=== PATIENT | male | born 1950 | race Caucasian/White ===

== ENCOUNTER → 2016-07-26 | Outpatient (CLI) | payer OTHER ==
[~2016-07-26] MED LIST: ASPCH81X PO; ATV5 PO; CALC600T9 PO; CALCTAB5 PO; CEFD300C2 PO; CHOL100010 PO; CHOL2000 PO; CITA20TA4 PO; FISHOIL PO; IBUP-1050 PO; LANS30CA12 PO; LORA-741 PO; MULTTAB58 PO; NEBI10TA2 PO; OMEG10007 PO; SILO8CAP PO; TRAM-10 PO; [UNRECOGNIZED DRUG - OTHER] PO
[2016-07-26 12:59] LABS: BASO % 0.3 %; BASO ABS # 0.02 K/uL (0-0.2); COMPLETE YES; EOS % 0.9 %; HEMATOCRIT 42.4 % (42-52); LYMPH % 17.4 %; LYMPH ABS # 1.37 K/uL (1.2-3.4); MEAN CELL VOLUME 80.6 fL (80-100); MEAN CORPUSCULAR HEMOGLOBIN 29.5 pg (25-34); MEAN CORPUSCULAR HGB CONC 36.6 g/dl (32-36); MEAN PLATELET VOLUME 9.6 fL (7.4-10.4); MONO % 6.1 %; NEUT % 75.3 %; PLATELET COUNT 255 K/uL (130-400); RED BLOOD COUNT 5.26 M/uL (4.7-6.1); WHITE BLOOD COUNT 7.88 K/uL (4.8-10.8)
[2016-07-26 13:38] LABS: ALT/SGPT 26 U/L (12-78); AST/SGOT 19 U/L (15-37); BLOOD UREA NITROGEN 17 mg/dl (7-18); BUN/CREATININE RATIO 16.6 (10-20); CALCIUM 8.8 mg/dl (8.5-10.1); CARBON DIOXIDE 30 mmol/L (21-32); CHLORIDE 104 mmol/L (98-107); GLUCOSE 80 mg/dl (70-99); POTASSIUM 3.8 mmol/L (3.5-5.1); SODIUM 142 mmol/L (136-145)
[2016-07-26 13:49] LABS: ALB/GLOB RATIO 1.4 (0.9-2); ALKALINE PHOSPHATASE 79 U/L (45-117); C-REACTIVE PROTEIN 0.46 mg/dl (0-0.29)
--- NOTE | 2016-07-27 08:20 | DIAGNOSTIC IMAGING REPORT ---
LUMBAR SPINE 5 VIEWS HISTORY: Low BACK PAIN COMPARISON: Lumbar spine 12/06/2015. FINDINGS: There is again noted L1 burst fracture with moderate to severe anterior wedging. The central aspect of the L1 vertebral body measures 1 cm in height. This is overall similar to the prior study. There are slight increased sclerosis involving the anterior aspect of the vertebral body consistent with interval healing. There is approximately 3 mm of retropulsion of the posterior fragment of L1 which is stable to slightly progressed. Severe degenerative disease at L4-L5 and mild disc space narrowing at L2-L3 and L5-S1 persists. Moderate facet degenerative changes seen within the lower lumbar spine. Alignment remains unchanged through both flexion and extension. The left L1 and L2 transverse process fractures are not well visualized. IMPRESSION: 1. Redemonstration of the L1 burst fracture with moderate to severe anterior wedging. There is slight increased sclerosis within the anterior aspect of the L1 vertebral body consistent with interval healing. 2. Approximately 3 mm of retropulsion of the posterior L1 fragment which is stable to slightly progressed. 3. The alignment remains intact through both flexion and extension. Electronically signed by: Roby Villa M.D. 07/27/2016 8:18 AM Dictated Date/Time: 07/27/2016 8:12 AM
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
== END | disposition home or self-care (01) ==
LOC: C.RAD 12:21
PROVIDERS: ATTEND Anesthesiology
DX: S32.011A Stable burst fracture of first lumbar vertebra, initial encounter for closed fracture (principal); X58.XXXA Exposure to other specified factors, initial encounter; M79.1 Myalgia; Z79.899 Other long term (current) drug therapy

== ENCOUNTER → 2016-08-17 | Day surgery (SDC) | payer OTHER ==
[2016-08-05 08:29] VITALS: BMI 25.0
[~2016-08-17] VITALS: Ht 180.3 cm; Wt 81.8 kg
[~2016-08-17] MED LIST changes: -ATV5 PO; -CALCTAB5 PO; +LIDOCAINE HCL 2% 2 ML VIAL (20MG/ML) ONE; +MIDAZOLAM HCL 1 MG/ML 2ML VIAL ONE; +ONDANSETRON INJ 2 MG/ML 2 ML VIAL ONE; +PROPOFOL IV EMULSION 10 MG/ML 20 ML VIAL IV ONE; +SODIUM CHLORIDE 0.9% 500ML 500 ML IV ONE; -[UNRECOGNIZED DRUG - OTHER] PO
[2016-08-17 08:46] VITALS: Ht 180.3 cm; Wt 81.8 kg
--- NOTE | 2016-08-17 08:58 | Endo History and Physical ---
History & Physical Date of Service: Aug 17, 2016. Chief Complaint: rectal bleeding Referring Physician: Dr. Kylee Villatoro History of Present Illness 65 yo CM who presents for colonoscopy secondary to rectal bleeding. Past Medical History High Cholesterol, Heart Disease, Hypertension Past Surgical History Hx Cardiac Surgery: No Hx Internal Defibrillator: No Hx Pacemaker: No Hx Abdominal Surgery: No Hx of Implantable Prosthesis: No Hx Post-Op Nausea and Vomiting: No Hx Cancer Surgery: No Hx Thoracic Surgery: No Hx Orthopedic: Yes (LT TKA, MULTIPLE LT KNEE SURGERIES, RT SHOULDER) Hx Urinary Tract Surgery: No Family History Polyp Social History Smoking Status: Never Smoker Hx Substance Use: No Hx Alcohol Use: Yes (SOCIALLY) Allergies Coded Allergies: Penicillins (Verified Allergy, Mild, petechiae, 08/17/16) Clindamycin (Verified Allergy, Unknown, ? rash, 08/17/16) was on 3 abx post-op. not certain which caused reaction Piperacillin (Verified Allergy, Unknown, ? rash, 08/17/16) was on 3 abx post-op, uncertain which caused reaction Tazobactam (Verified Allergy, Unknown, ? rash, 08/17/16) on 3 abx post-op uncertain which caused reaction Vancomycin (Verified Allergy, Unknown, ? rash, 08/17/16) on 3 abx post-op uncertain which caused reaction Current Medications Reported Home Medications Medications Dose Route/Sig Max Daily Dose Days Date Category Ativan (Lorazepam) 0.5 Mg Tab 0.5 Mg PO TID PRN 08/05/16 Reported Calcium + D (Calcium Carbonate-Vitamin D) 1 Tab Tab 2 Tab PO HS 08/05/16 Reported Advil (Ibuprofen) 200 Mg Tab 200 Mg PO 2 X WEEKLY PRN 07/23/16 Reported Ultram (Tramadol HCl) 50 Mg Tab 0.5 Tab PO DAILY PRN 07/23/16 Reported Rapaflo (Silodosin) 8 Mg Cap 1 Cap PO QAM 12/02/15 Reported Vitamin D (Cholecalciferol) 1,000 Inter.unit Tab 2,000 Inter.unit PO DAILY 12/01/15 Reported Prevacid (Lansoprazole) 30 Mg Capcr 30 Mg PO QAM 12/01/15 Reported Bystolic (Nebivolol Hcl) 10 Mg Tab 10 Mg PO QAM 12/01/15 Reported Aspirin Chewable (Aspirin) 81 Mg Chew 162 Mg PO QAM 03/26/12 Reported [place]-3 (Fish Oil) Oil 1 Cap PO HS 03/26/12 Reported Multivitamin (Multiple Vitamin) 1 Tab Tab 1 Tab PO HS 03/26/12 Reported Vital Signs Weight (Kilograms): 81.82 Height (Feet): 5 Height (Inches): 11 Physical Exam General Appearance: WD/WN, no apparent distress Respiratory/Chest: Auscultation: breath sounds normal Cardiovascular: Heart Auscultation: RRR Abdomen: Bowel Sounds: normal Inspection & Palpation: soft, non-distended, no tenderness, guarding & rebound Assessment and Plan Assessment: 65 yo CM who presents for colonoscopy secondary to rectal bleeding. Plan: Proceed with colonoscopy.
[2016-08-17 08:59] VITALS: TEMP 36.7
--- NOTE | 2016-08-17 09:29 | GI REPORT ---
Procedure Date: 08/17/2016 9:10 AM Procedure: Colonoscopy Indications: Rectal bleeding Medicines: Monitored Anesthesia Care Complications: No immediate complications. Estimated Blood Loss: Estimated blood loss: none. Procedure: Pre-Anesthesia Assessment: - Prior to the procedure, a History and Physical was performed, and patient medications and allergies were reviewed. The patient's tolerance of previous anesthesia was also reviewed. The risks and benefits of the procedure and the sedation options and risks were discussed with the patient. All questions were answered, and informed consent was obtained. Prior Anticoagulants: The patient has taken aspirin, last dose was 7 days prior to procedure. ASA Grade Assessment: III - A patient with severe systemic disease. After reviewing the risks and benefits, the patient was deemed in satisfactory condition to undergo the procedure. After I obtained informed consent, the scope was passed under direct vision. Throughout the procedure, the patient's blood pressure, pulse, and oxygen saturations were monitored continuously. The scope was introduced through the anus and advanced to the terminal ileum. The colonoscopy was performed without difficulty. The patient tolerated the procedure well. The quality of the bowel preparation was good. The terminal ileum, ileocecal valve, appendiceal orifice, and rectum were photographed. Findings: Multiple small-mouthed diverticula were found in the sigmoid colon. The exam was otherwise without abnormality. Impression: - Diverticulosis in the sigmoid colon. - The examination was otherwise normal. - No specimens collected. Recommendation: - Resume previous diet. - Continue present medications. - Repeat colonoscopy in 10 years for surveillance. - Return to primary care physician as previously scheduled. Drake Lacy DO 08/17/2016 9:28:38 AM This report has been signed electronically. Note Initiated On: 08/17/2016 9:10 AM I attest to the content of the Intraoperative Record and orders documented therein, exceptions below
--- NOTE | 2016-08-17 09:30 | Discharge Instructions ---
Endoscopy Patient Instructions Date / Procedure(s) Performed Aug 17, 2016. Colonoscopy Allergy Information Coded Allergies: Penicillins (Verified Allergy, Mild, petechiae, 08/17/16) Clindamycin (Verified Allergy, Unknown, ? rash, 08/17/16) was on 3 abx post-op. not certain which caused reaction Piperacillin (Verified Allergy, Unknown, ? rash, 08/17/16) was on 3 abx post-op, uncertain which caused reaction Tazobactam (Verified Allergy, Unknown, ? rash, 08/17/16) on 3 abx post-op uncertain which caused reaction Vancomycin (Verified Allergy, Unknown, ? rash, 08/17/16) on 3 abx post-op uncertain which caused reaction Discharge Date / Findings Aug 17, 2016. Diverticulosis Medication Instructions Stopped Medication(s): off ASA 81mg for a week. OK to resume all medications today as prescribed Reported Home Medications Medications Dose Route/Sig Max Daily Dose Days Date Category Ativan (Lorazepam) 0.5 Mg Tab 0.5 Mg PO TID PRN 08/05/16 Reported Calcium + D (Calcium Carbonate-Vitamin D) 1 Tab Tab 2 Tab PO HS 08/05/16 Reported Advil (Ibuprofen) 200 Mg Tab 200 Mg PO 2 X WEEKLY PRN 07/23/16 Reported Ultram (Tramadol HCl) 50 Mg Tab 0.5 Tab PO DAILY PRN 07/23/16 Reported Rapaflo (Silodosin) 8 Mg Cap 1 Cap PO QAM 12/02/15 Reported Vitamin D (Cholecalciferol) 1,000 Inter.unit Tab 2,000 Inter.unit PO DAILY 12/01/15 Reported Prevacid (Lansoprazole) 30 Mg Capcr 30 Mg PO QAM 12/01/15 Reported Bystolic (Nebivolol Hcl) 10 Mg Tab 10 Mg PO QAM 12/01/15 Reported Aspirin Chewable (Aspirin) 81 Mg Chew 162 Mg PO QAM 03/26/12 Reported [place]-3 (Fish Oil) Oil 1 Cap PO HS 03/26/12 Reported Multivitamin (Multiple Vitamin) 1 Tab Tab 1 Tab PO HS 03/26/12 Reported Provider Instructions Activity Restrictions - No exercising or heavy lifting for 24 hours. - Do not drink alcohol the day of the procedure. - Do not drive a car or operate machinery until the day after the procedure. - Do not make any important decisions or sign important papers in 24 hours after the procedure. Following Day: - Return to full activity which may include returning to work/school. Diet Start your diet with liquids and light foods (jello, soup, juice, toast). Then eat your usual diet if not nauseated. Treatment For Common After Affects For mild abdominal pain, bloating, or excessive gas: - Rest - Eat lightly - Lie on right side Follow-Up Information Follow-up with Dr. Kylee Villatoro as scheduled Anesthesia Information What You Should Know You have had a procedure that required some medicine to reduce anxiety and discomfort. This treatment is called moderate sedation. After receiving the treatment, you may be sleepy, but you will be able to breathe on your own. The effects of the treatment may last for several hours. Follow these instructions along with Activity/Diet recommendations noted above: * Do NOT do anything where dizziness or clumsiness would be dangerous. * Rest quietly at home today, then you can be up and about tomorrow. * Have a responsible person stay with you the rest of today. * You may have had an I.V. today. If so, you may take the dressing off later today. Recommendations Call your doctor if: * Trouble breathing * Continuous vomiting for more than 24 hours * Temperature above 101 degrees * Severe abdominal pain or bloating * Pain not relieved by pain medicine ordered * There is increased drainage or redness from any incision * A large amount of rectal bleeding greater than 2-3 tablespoons. (If you had a polyp/s removed or have hemorrhoids, a small amount of blood - from the rectum is to be expected.) * You have any unanswered questions or concerns. IN THE EVENT OF A SERIOUS EMERGENCY, GO TO THE NEAREST EMERGENCY ROOM Your discharge instructions were prepared by provider Drake Lacy. Patient Instructions Signature Page Moo Reed Patient (or Guardian) Signature/Date: I have read and understand the instructions given to me by my caregivers. Caregiver/RN/Doctor Signature/Date: The above-named patient and/or guardian has received patient instructions on this date. + Original Patient Signature Page (only) stays with chart. Please make copy for patient.
--- NOTE | 2016-08-17 09:44 | Anesthesiology Progress Note ---
Anesthesia Post Op Note Date & Time Aug 17, 2016 at 09:43 Vital Signs Pain Intensity: 0 Vital Signs Past 12 Hours Date Time Temp Pulse Resp B/P Pulse Ox O2 Delivery O2 Flow Rate FiO2 08/17/16 09:31 56 18 113/74 98 Room Air 08/17/16 08:59 36.7 57 18 129/76 96 Room Air Notes Mental Status: alert / awake / arousable, participated in evaluation Pt Amnestic to Procedure: Yes Nausea / Vomiting: adequately controlled Pain: adequately controlled Airway Patency, RR, SpO2: stable & adequate BP & HR: stable & adequate Hydration State: stable & adequate Anesthetic Complications: no major complications apparent
[2016-08-17 10:01] VITALS: BP 96/73; PULSE 50; O2SAT 96
== END | disposition home or self-care (01) ==
LOC: C.GI 08:23
PROVIDERS: ATTEND Internal Medicine
DX: K62.5 Hemorrhage of anus and rectum (principal); K57.30 Diverticulosis of large intestine without perforation or abscess without bleeding; I10 Essential (primary) hypertension; N40.0 Benign prostatic hyperplasia without lower urinary tract symptoms; Z96.652 Presence of left artificial knee joint; M19.90 Unspecified osteoarthritis, unspecified site; Z98.890 Other specified postprocedural states; Z68.25 Body mass index [BMI] 25.0-25.9, adult; Z88.1 Allergy status to other antibiotic agents; Z88.0 Allergy status to penicillin; Z83.71 Family history of colonic polyps

== ENCOUNTER → 2016-10-11 | Outpatient (CLI) | payer OTHER ==
[~2016-10-11] MED LIST changes: -LIDOCAINE HCL 2% 2 ML VIAL (20MG/ML) ONE; -MIDAZOLAM HCL 1 MG/ML 2ML VIAL ONE; -ONDANSETRON INJ 2 MG/ML 2 ML VIAL ONE; -PROPOFOL IV EMULSION 10 MG/ML 20 ML VIAL IV ONE; -SODIUM CHLORIDE 0.9% 500ML 500 ML IV ONE
== END | disposition home or self-care (01) ==
LOC: C.PATHSPEC 17:36
PROVIDERS: ATTEND Surgery
DX: D17.9 Benign lipomatous neoplasm, unspecified (principal)

== ENCOUNTER 2017-02-05 03:08 | Inpatient (IN) | payer OTHER ==
[2017-02-05] VITALS (8 sets, daily range): BP systolic 103–137; BP diastolic 68–79; PULSE 57–67; TEMP 37–39.3; O2SAT 94; Ht 180.3 cm; Wt 84.4 kg
[~2017-02-05] VITALS: Ht 180.3 cm; Wt 84.4 kg
[~2017-02-05 03:08] MED LIST changes: -CEFD300C2 PO; -CHOL2000 PO; -CITA20TA4 PO; -OMEG10007 PO
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
[2017-02-05] MEDS ORDERED: LIDOCAINE HCL 2% JELLY 30 ML TUBE EXT ONE (03:33)
[2017-02-05 03:58] LABS: URINE APPEARANCE CLEAR (CLEAR); URINE BILIRUBIN NEG (NEG); URINE COLOR ORANGE; URINE EPITHELIAL CELL AUTO 0-5 /lpf (0-5); URINE NITRITE POS (NEG); URINE SPECIFIC GRAVITY 1.011 (1.000-1.030); UROBILINOGEN NEG (NEG); ZZURINE CULT IF INDIC CATH YES
[2017-02-05 04:00] LABS: BASO % 0.1 %; BASO ABS # 0.01 K/uL (0-0.2); COMPLETE YES; EOS % 0.1 %; HEMATOCRIT 42.1 % (42-52); IG% 0.2 %; LYMPH % 3.6 %; LYMPH ABS # 0.61 K/uL (1.2-3.4); MEAN CELL VOLUME 83.4 fL (80-100); MEAN CORPUSCULAR HEMOGLOBIN 29.9 pg (25-34); MEAN CORPUSCULAR HGB CONC 35.9 g/dl (32-36); MEAN PLATELET VOLUME 9.5 fL (7.4-10.4); MONO % 10.2 %; NEUT % 85.8 %; PLATELET COUNT 196 K/uL (130-400); RED BLOOD COUNT 5.05 M/uL (4.7-6.1); WHITE BLOOD COUNT 17.02 K/uL (4.8-10.8)
[2017-02-05 04:05] LABS: MANUAL MICROSCOPIC REQUIRED? NO; REVIEW REQ? NO
[2017-02-05] MEDS ORDERED: SODIUM CHLORIDE 0.9% 1000ML 1,000 ML IV STA (04:11)
[2017-02-05] MEDS ORDERED: DAPTOmycin IV 500 MG in SODIUM CHLORIDE 0.9% 50ML 50 ML IV STA (04:11)
[2017-02-05] MEDS ORDERED: PIPERACILLIN/TAZOBACTAM 4.5 GM/100ML D5W IV STA (04:11)
[2017-02-05 04:16] LABS: C-REACTIVE PROTEIN 5.59 mg/dl (0-0.29); CREATININE 1.1 mg/dl (0.60-1.40)
[2017-02-05] MEDS ORDERED: OMEG10007 PO (04:40)
[2017-02-05] MEDS ORDERED: CHOL2000 PO (04:40)
[2017-02-05] MEDS ORDERED: CITA20TA4 PO (04:54)
[2017-02-05 05:36] LABS: BUN/CREATININE RATIO 14.5 (10-20); CALCIUM 8.2 mg/dl (8.5-10.1); CREATININE 1.2 mg/dl (0.60-1.40); POTASSIUM 4.3 mmol/L (3.5-5.1)
[2017-02-05 05:38] LABS: ALB/GLOB RATIO 1.3 (0.9-2)
[2017-02-05] MEDS ORDERED: LORAZEPAM 0.5 MG TAB PO PRN (06:00)
[2017-02-05] MEDS ORDERED: ACETAMINOPHEN 325 MG TAB PO PRN (06:00)
[2017-02-05] MEDS: SODIUM CHLORIDE 0.9% 1000ML 1,000 ML IV SCH ×2 (06:00→15:38)
[2017-02-05] MEDS ORDERED: ONDANSETRON INJ 8 MG in DEXTROSE 5% 50ML 50 ML IV PRN (06:00)
[2017-02-05] MEDS ORDERED: HYDROCODONE/ACETAMOPHEN 5/325MG TAB ONE (06:39)
[2017-02-05] MEDS ORDERED: CIPROFLOXACIN / D5W 400 MG in PREMIXED IN D5W 200 ML IV SCH (08:00)
[2017-02-05] MEDS ORDERED: CITALOPRAM 20 MG TAB PO SCH (08:00)
[2017-02-05] MEDS: CHOLECALCIFEROL 1000 INTER.UNIT TAB PO SCH (08:44)
[2017-02-05] MEDS: PANTOprazole SOD 40 MG TAB PO SCH (08:44)
[2017-02-05] MEDS: ASPIRIN 81 MG CHEW PO SCH (08:45)
[2017-02-05] MEDS: CALCIUM 600MG + VIT D 400 IU TAB PO SCH ×2 (08:45→19:25)
[2017-02-05] MEDS: OMEGA-3 (PURIFIED FISH OIL) 1 GM CAP PO SCH (08:45)
[2017-02-05] MEDS: POLYETHYLENE (MIRALAX) 17 GM PACK PO SCH (08:46)
[2017-02-05] MEDS: NEBIVOLOL HCL 5 MG TAB PO SCH (08:51)
--- NOTE | 2017-02-05 11:16 | Urology Consultation ---
History General Date of Service: Feb 05, 2017. Primary Care Physician: Gilmer Grubbs M.D. History of Present Illness Pt is a 66 y/o male seen in the past for chronic prostatitis with a slight elevation of his psa that responded to antibiotics and a normalization of his psa 5 years ago , His psa was 2.55 in november 2013 and 2.83 in november 2015. He has continued to have obstructive and irritative voiding symptoms with nocturia x 2 but no recent worsening of his symptoms and no recent dysuria .He has been taking Rapaflo . Two days ago he had a hemorrhoidectomy at [facility] [place] with Dr. Meléndez who injected a pain med perirectally at the time of the procedure and who warned that he left a vein intact to avoid venous congestion of his prostate . Pt did not have a catheter perioperatively and was able to void . He has not had a bowel movement. Last night he developed dysuria and difficulty voiding and then fever and chills. He presented to the Er with pyuria and in retention with a wbc of 17.02. He was started on pipericillin and daptomycin last night . He was changed to cipro this morning . Of note when he took cipro in the past there was a question of him developing interstitial nephritis from this. Blood and urine cultures are pending and a renee is in place. He does have some perirectal discomfort which is expected and is on stool softener and mirilax as he is yet to have a BM. Discussed options for oral antibx pending culture results and pt thinks he has taken levequin w/o mishap and has no Known allergy to Bactrim which is also an option . Laboratory Labs were reviewed and are within normal limits unless listed below. Labs are available in the chart and at [facility] Problem List Medical Problems: (1) Burst fracture of lumbar vertebra Status: Acute (2) Lumbar transverse process fracture Status: Acute (3) Prostatitis Status: Acute (4) Sepsis Status: Acute (5) Urinary retention Status: Acute Family History No pertinent family history Social History Hx Tobacco Use In Past Year?: No Marital status: Housing status: lives with family Occupation status: employed Immunizations History of Influenza Vaccine: Yes History of Tetanus Vaccine?: Unknown History of Pneumococcal: Yes History of Hepatitis B Vaccine: Unknown History of MDRO No Allergies Coded Allergies: Clindamycin (Verified Allergy, Unknown, ? rash, 08/17/16) was on 3 abx post-op. not certain which caused reaction Piperacillin (Verified Allergy, Unknown, ? rash, 08/17/16) was on 3 abx post-op, uncertain which caused reaction Tazobactam (Verified Allergy, Unknown, ? rash, 08/17/16) on 3 abx post-op uncertain which caused reaction Vancomycin (Verified Allergy, Unknown, ? rash, 08/17/16) on 3 abx post-op uncertain which caused reaction Medications Home Medications: Home Meds and Scripts Medications Dose Route/Sig Max Daily Dose Days Date Category Citalopram Hydrobromide 20 Mg Tab 20 Mg PO DAILY 02/05/17 Reported Dolphin-3 (Fish Oil) 1 Ea Cap 1,000 Mg PO DAILY 02/05/17 Reported Vitamin D3 (Cholecalciferol) 2,000 Unit Cap 2,000 Units PO DAILY 02/05/17 Reported Ativan (Lorazepam) 0.5 Mg Tab 0.5 Mg PO TID PRN 08/05/16 Reported Calcium + D (Calcium Carbonate-Vitamin D) 1 Tab Tab 2 Tab PO HS 08/05/16 Reported Advil (Ibuprofen) 200 Mg Tab 200 Mg PO 2 X WEEKLY PRN 07/23/16 Reported Rapaflo (Silodosin) 8 Mg Cap 8 Mg PO QAM 12/02/15 Reported Prevacid (Lansoprazole) 30 Mg Capcr 30 Mg PO QAM 12/01/15 Reported Bystolic (Nebivolol Hcl) 10 Mg Tab 10 Mg PO QAM 12/01/15 Reported Aspirin Chewable (Aspirin) 81 Mg Chew 162 Mg PO QAM 03/26/12 Reported Multivitamin (Multiple Vitamin) 1 Tab Tab 1 Tab PO HS 03/26/12 Reported Inpatient Medications: Current Inpatient Medications Medications (Trade) Dose Ordered Sig/Lesli Route Start Time Stop Time Status Last Admin Dose Admin Acetaminophen (Tylenol Tab) 650 mg Q4H PRN PO 02/05/17 06:00 03/07/17 05:59 Magnesium Hydroxide (Milk Of Magnesia Susp) 30 ml Q6H PRN PO 02/05/17 06:00 03/07/17 05:59 Polyethylene (Miralax Powder Packet) 17 gm DAILY PO 02/05/17 08:00 03/07/17 08:59 02/05/17 08:46 17 GM Sodium Chloride 1,000 ml @ 100 mls/hr Q10H IV 02/05/17 06:00 03/07/17 05:59 02/05/17 06:00 100 MLS/HR Ondansetron HCl 8 mg/Dextrose 54 ml @ 200 mls/hr Q4H PRN IV 02/05/17 06:00 03/07/17 05:59 Aspirin (Aspirin Chew) 162 mg QAM PO 02/05/17 08:00 03/07/17 08:59 02/05/17 08:45 162 MG Citalopram Hydrobromide (celeXA TAB) 20 mg DAILY PO 02/05/17 08:00 03/07/17 08:59 Fish Oil (Dolphin-3 (Purified Fish Oil) Cap) 1 gm DAILY PO 02/05/17 08:00 03/07/17 08:59 02/05/17 08:45 1 GM Lorazepam (Ativan Tab) 0.5 mg TID PRN PO 02/05/17 06:00 03/07/17 05:59 Multivitamins (Multivitamin Tab) 1 tab HS PO 02/05/17 21:00 03/07/17 20:59 Nebivolol (Bystolic Tab) 10 mg DAILY PO 02/05/17 09:00 03/07/17 08:59 02/05/17 08:51 10 MG Miscellaneous Information (Order Awaiting Action) 1 ea QS N/A 02/05/17 08:00 03/07/17 07:59 Pantoprazole Sodium (Protonix Tab) 40 mg QAM PO 02/05/17 08:00 03/07/17 08:59 02/05/17 08:44 40 MG Acetaminophen/ Hydrocodone Bitart ([place] 5/325 Tab) 1 tab Q4H PRN PO 02/05/17 06:00 02/19/17 05:59 Ciprofloxacin/ Dextrose 400 mg/ Prmx 200 ml @ 100 mls/hr Q12H IV 02/05/17 08:00 02/15/17 07:59 Calcium/Vitamin D (Caltrate Plus Tab) 1 tab BID PO 02/05/17 08:00 03/07/17 08:59 02/05/17 08:45 1 TAB Cholecalciferol (Vitamin D Tab) 2,000 inter.unit QAM PO 02/05/17 08:00 03/07/17 08:59 02/05/17 08:44 2,000 INTER.UNIT Review of Systems Review of Systems Eyes: No see HPI, No blurred vision, No double vision, No eye pain, No loss of night vision, No problem reported Neurological: No see HPI, No dizzy, No passing out, No numbness/tingling, No seizures, No problem reported Endocrine: No see HPI, No excessive thirst, No too hot, No too cold, No tired/ sluggish, No problem reported Gastrointestinal: + problem reported (perirctal pain from surgery) Cardiovascular: No see HPI, No heart murmur, No chest pain, No angina, No irregular heartbeat, No palpitations, No swelling ankles/feet, No problem reported Respiratory: No see HPI, No shortness of breath, No wheezing, No coughing up blood, No chronic cough, No problem reported Musculoskeletal: No see HPI, No joint pain, No neck pain, No back pain, No arthritis, No problem reported Blood / Lymphatic: No see HPI, No bleed easily, No bruise easily, No swollen glands, No problem reported Ears / Nose / Throat: No see HPI, No hearing loss, No sinus, No hoarse voice, No sore throat, No problem reported Psychologic / Mental: No see HPI, No nervous, No trouble remembering, No difficulty sleeping, No problem reported Male : + frequent urination, + painful urination, + weak stream, + infections , + nocturia more than once/night Physical Exam Vital Signs: Vital Signs Past 12 Hours Date Time Temp Pulse Resp B/P (MAP) Pulse Ox O2 Delivery O2 Flow Rate FiO2 02/05/17 07:40 37.0 67 20 125/79 (94) 94 02/05/17 06:30 37.7 62 18 137/78 02/05/17 06:16 70 16 131/90 99 02/05/17 04:12 63 17 110/75 96 Room Air 02/05/17 03:12 37.0 69 16 142/88 96 Room Air Physical Exam: General Appearance: WD/WN, no apparent distress, + mild distress Eyes: bilateral eyes normal inspection, bilateral eyes PERRL, bilateral eyes EOMI ENT: normal ENT inspection, hearing grossly normal, TMs normal, pharynx normal Neck: supple, no adenopathy, thyroid normal, no JVD Respiratory/Chest: chest non-tender, lungs clear, normal breath sounds, no respiratory distress, no accessory muscle use Extremities: normal range of motion 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 Will discuss antibiotic with Dr. Kylee Avalos .Awaiting culture results .Might consider Levequin instead of cipro and will monitor
[2017-02-05] MEDS: HYDROCODONE/ACETAMOPHEN 5/325MG TAB PO PRN ×2 (11:30→19:23)
[2017-02-05] MEDS: MAGNESIUM HYDROXIDE SUSP 30 ML UDC PO PRN (11:35)
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
--- NOTE | 2017-02-05 12:59 | Progress Note ---
Progress Note Date of Service Feb 05, 2017. Progress Note 66-year-old male admitted earlier this morning with urinary tract infection, urinary retention, suspected prostatitis, recently underwent surgery for hemorrhoids 2 days ago at [facility]. Patient was admitted. A Cates catheter was placed in the emergency room. Cultures were done. He was started on IV antibiotics. He received one dose of Zosyn and one dose of daptomycin in the emergency room. I did change him to ciprofloxacin intravenously. At this time he is resting comfortably. His maximum temperature was 37.7 at 6: 30 this morning. He had some concern about IV ciprofloxacin. He relates that he thought he developed alert renal complication with ciprofloxacin in the past. I did review his records. I printed a summary 04 his creatinine level since 2004. The highest creatinine level was 1.47 back in 2013. At that time his urinalysis was completely normal. At this point we'll continue with his medications, I also ordered sitz baths, he has not had a bowel movement since his surgery. I did order milk of magnesia and also place him on daily dose of MiraLax. He was seen earlier by Dr. Don in neurology consultation.
[2017-02-05] MEDS ORDERED: METRONIDAZOLE / NSS 500 MG in PREMIXED NSS 100 ML IV STA (14:58)
[2017-02-05] MEDS ORDERED: PIPERACILL/TAZOBAC IV 4.5 GM in DEXTROSE 5% 100ML IV ONE (15:30)
[2017-02-05] MEDS ORDERED: PIPERACILL/TAZOBAC CONSULT ACTIVE PRN (15:45)
[2017-02-05] MEDS ORDERED: OPTIRAY 320 IV PRN (16:15)
--- NOTE | 2017-02-05 16:15 | Medical Consult ---
Consultation Date of Consultation: Feb 05, 2017. Attending Physician: Gilmer Grubbs M.D. Reason for Consultation: UTI, status post prostatectomy, questionable postoperative complications History of Present Illness 66-year-old male with history of BPH and prostatitis, who is now 3 days status post hemorrhoidectomy. Procedure was apparently uncomplicated, but yesterday patient developed severe dysuria, difficulty urinating, fever, and rigors. was seen in the emergency department where was found to have abnormal urinalysis with pyuria, and Cates catheter was placed and patient was admitted to the hospital for further management. He was initially given ciprofloxacin, but now has been changed to combination of Zosyn and metronidazole. Has continued to spike fever although white count has decreased from [id number]. Blood cultures are negative to date, urine culture is pending. Has not had bowel movement since surgery. Past Medical/Surgical History Medical Problems: (1) Burst fracture of lumbar vertebra Status: Acute (2) Lumbar transverse process fracture Status: Acute (3) Prostatitis Status: Acute (4) Sepsis Status: Acute (5) Urinary retention Status: Acute Family History No pertinent family history Social History Smoking Status: Unknown if Ever Smoked Drug Use: none Marital Status: Occupation Status: employed Allergies Coded Allergies: Clindamycin (Verified Allergy, Unknown, ? rash, 02/05/17) was on 3 abx post-op. not certain which caused reaction- HAS HAD ZOSYN W/O PROBLEM SIND THEN Vancomycin (Verified Allergy, Unknown, ? rash, 02/05/17) on 3 abx post-op uncertain which caused reaction-HAS HAD ZOSYN W/O PROBLEM SINCE THEN Current Inpatient Medications Current Inpatient Medications Medications (Trade) Dose Ordered Sig/Lesli Route Start Time Stop Time Status Last Admin Dose Admin Acetaminophen (Tylenol Tab) 650 mg Q4H PRN PO 02/05/17 06:00 03/07/17 05:59 02/05/17 14:04 650 MG Magnesium Hydroxide (Milk Of Magnesia Susp) 30 ml Q6H PRN PO 02/05/17 06:00 03/07/17 05:59 02/05/17 11:35 30 ML Polyethylene (Miralax Powder Packet) 17 gm DAILY PO 02/05/17 08:00 03/07/17 08:59 02/05/17 08:46 17 GM Sodium Chloride 1,000 ml @ 100 mls/hr Q10H IV 02/05/17 06:00 03/07/17 05:59 02/05/17 15:38 100 MLS/HR Ondansetron HCl 8 mg/Dextrose 54 ml @ 200 mls/hr Q4H PRN IV 02/05/17 06:00 03/07/17 05:59 Aspirin (Aspirin Chew) 162 mg QAM PO 02/05/17 08:00 03/07/17 08:59 02/05/17 08:45 162 MG Fish Oil ([place]-3 (Purified Fish Oil) Cap) 1 gm DAILY PO 02/05/17 08:00 03/07/17 08:59 02/05/17 08:45 1 GM Lorazepam (Ativan Tab) 0.5 mg TID PRN PO 02/05/17 06:00 03/07/17 05:59 Multivitamins (Multivitamin Tab) 1 tab HS PO 02/05/17 21:00 03/07/17 20:59 Nebivolol (Bystolic Tab) 10 mg DAILY PO 02/05/17 09:00 03/07/17 08:59 02/05/17 08:51 10 MG Pantoprazole Sodium (Protonix Tab) 40 mg QAM PO 02/05/17 08:00 03/07/17 08:59 02/05/17 08:44 40 MG Acetaminophen/ Hydrocodone Bitart ([place] 5/325 Tab) 1 tab Q4H PRN PO 02/05/17 06:00 02/19/17 05:59 02/05/17 11:30 1 TAB Calcium/Vitamin D (Caltrate Plus Tab) 1 tab BID PO 02/05/17 08:00 03/07/17 08:59 02/05/17 08:45 1 TAB Cholecalciferol (Vitamin D Tab) 2,000 inter.unit QAM PO 02/05/17 08:00 03/07/17 08:59 02/05/17 08:44 2,000 INTER.UNIT Silodosin (Rapaflo Cap) 8 mg QAM PO 02/06/17 08:00 03/08/17 07:59 Ioversol (Optiray 320) 100 ml UD PRN IV 02/05/17 16:15 02/09/17 16:14 UNV Ertapenem 1 gm/ Sodium Chloride 50 ml @ 120 mls/hr Q24H IV 02/05/17 16:15 02/15/17 16:14 UNV Review of Systems Constitutional: + fever, + chills Eyes: No problem reported ENT: No problem reported Respiratory: No problem reported Cardiovascular: No problem reported Abdomen: No problem reported Musculoskeletal: No problem reported Genitourinary - Male: + dysuria, + urinary frequency, + urinary hesitancy Neurologic: No problem reported Psychiatric: No problem reported Endocrine: No problem reported Hematologic / Lymphatic: No problem reported Integumentary: No problem reported Allergic / Immunologic: No problem reported Physical Exam Date Time Temp Pulse Resp B/P (MAP) Pulse Ox O2 Delivery O2 Flow Rate FiO2 02/05/17 15:44 38.1 62 16 103/68 (80) 94 02/05/17 14:00 39.3 02/05/17 13:30 37.4 02/05/17 08:00 37.0 67 20 125/79 94 Room Air 02/05/17 07:40 37.0 67 20 125/79 (94) 94 02/05/17 06:30 37.7 62 18 137/78 02/05/17 06:16 70 16 131/90 99 02/05/17 04:12 63 17 110/75 96 Room Air 02/05/17 03:12 37.0 69 16 142/88 96 Room Air General Appearance: WD/WN, no apparent distress Head: normocephalic, atraumatic Eyes: normal inspection, EOMI, sclerae normal ENT: normal ENT inspection, hearing grossly normal, pharynx normal Neck: supple, no adenopathy, thyroid normal, trachea midline Respiratory/Chest: chest non-tender, lungs clear, normal breath sounds, no respiratory distress Cardiovascular: regular rate, rhythm, no gallop, no murmur Abdomen/GI: normal bowel sounds, non tender, soft, no organomegaly Back: normal inspection, no CVA tenderness Extremities/Musculoskelatal: no calf tenderness, non-tender Neurologic/Psych: alert, oriented x 3 Skin: normal color, warm/dry, no rash Lymphatic: no adenopathy Laboratory Results Date/Time Source Procedure Growth Status 02/05/17 04:01 Blood Blood Culture Pending Received 02/05/17 03:40 Blood Blood Culture Pending Received 02/05/17 03:40 Urine,Catheterized Urine Culture Pending Received Last 24 Hours Test 02/05/17 03:40 02/05/17 05:10 02/05/17 16:00 White Blood Count 17.02 K/uL Red Blood Count 5.05 M/uL Hemoglobin 15.1 g/dL Hematocrit 42.1 % Mean Corpuscular Volume 83.4 fL Mean Corpuscular Hemoglobin 29.9 pg Mean Corpuscular Hemoglobin Concent 35.9 g/dl Platelet Count 196 K/uL Mean Platelet Volume 9.5 fL Neutrophils (%) (Auto) 85.8 % Lymphocytes (%) (Auto) 3.6 % Monocytes (%) (Auto) 10.2 % Eosinophils (%) (Auto) 0.1 % Basophils (%) (Auto) 0.1 % Neutrophils # (Auto) 14.62 K/uL Lymphocytes # (Auto) 0.61 K/uL Monocytes # (Auto) 1.73 K/uL Eosinophils # (Auto) 0.01 K/uL Basophils # (Auto) 0.01 K/uL RDW Standard Deviation 41.7 fL RDW Coefficient of Variation 13.9 % Immature Granulocyte % (Auto) 0.2 % Immature Granulocyte # (Auto) 0.04 K/uL Urine Color ORANGE Urine Appearance CLEAR Urine pH 8.0 Urine Specific [place] 1.011 Urine Protein NEG Urine Glucose (UA) NEG Urine Ketones NEG Urine Occult Blood 3+ Urine Nitrite POS Urine Bilirubin NEG Urine Urobilinogen NEG Urine Leukocyte Esterase LARGE Urine WBC (Auto) >30 /hpf Urine RBC (Auto) >30 /hpf Urine Hyaline Casts (Auto) 1-5 /lpf Urine Epithelial Cells (Auto) 0-5 /lpf Urine Bacteria (Auto) 4+ Sodium Level 137 mmol/L 140 mmol/L Potassium Level 4.0 mmol/L 4.3 mmol/L Chloride Level 103 mmol/L 106 mmol/L Carbon Dioxide Level 29 mmol/L 29 mmol/L Anion Gap 5.0 mmol/L 5.0 mmol/L Blood Urea Nitrogen 19 mg/dl 17 mg/dl Creatinine 1.10 mg/dl 1.20 mg/dl Est Creatinine Clear Calc Drug Dose 71.3 ml/min 65.3 ml/min Estimated GFR () 81.2 73.1 Estimated GFR (Non- 70.1 63.1 BUN/Creatinine Ratio 17.0 14.5 Random Glucose 100 mg/dl 109 mg/dl Calcium Level 9.0 mg/dl 8.2 mg/dl C-Reactive Protein 5.59 mg/dl Lactic Acid Level 1.3 mmol/L Total Bilirubin 1.5 mg/dl Aspartate Amino Transf (AST/SGOT) 15 U/L Alanine Aminotransferase (ALT/SGPT) 23 U/L Alkaline Phosphatase 65 U/L Total Protein 5.5 gm/dl Albumin 3.1 gm/dl Globulin 2.4 gm/dl Albumin/Globulin Ratio 1.3 Assessment & Plan Probable urinary tract infection/acute prostatitis following hemorrhoid surgery , possible resistant pathogen given recent hospital stay and prior quinolone use. Will change to IV ertapenem pending cultures. Await abd/pelvic CT. Will follow.
[2017-02-05 16:25] LABS: BASO % 0.2 %; BASO ABS # 0.02 K/uL (0-0.2); COMPLETE YES; HEMATOCRIT 39.2 % (42-52); IG% 0.2 %; LYMPH % 5.8 %; LYMPH ABS # 0.74 K/uL (1.2-3.4); MEAN CELL VOLUME 83.4 fL (80-100); MEAN CORPUSCULAR HEMOGLOBIN 29.8 pg (25-34); MEAN CORPUSCULAR HGB CONC 35.7 g/dl (32-36); MEAN PLATELET VOLUME 9.4 fL (7.4-10.4); MONO % 4.7 %; NEUT % 89.1 %; PLATELET COUNT 163 K/uL (130-400); WHITE BLOOD COUNT 12.69 K/uL (4.8-10.8)
[2017-02-05 16:46] LABS: BUN/CREATININE RATIO 13.7 (10-20); CALCIUM 8.3 mg/dl (8.5-10.1); CREATININE 1.1 mg/dl (0.60-1.40); POTASSIUM 3.6 mmol/L (3.5-5.1)
--- NOTE | 2017-02-05 17:47 | Progress Note ---
Subjective Date of Service: Feb 05, 2017. Subjective Pt evaluation today including: conversation w/ patient, conversation w/ family , lab review, conversation w/ sales consultant insurance Pt seen by ID and started on Broad spectrum antibiotic pending culture result. Spoke w Dr. Kylee Avalos and Ct of abd and pelvis pending Spoke w Dr. Naidu at [place] and did not see obvious necrosis extendinding from his suture line to the skin next to his anus which he felt would indicate necrosis Problem List Medical Problems: (1) Burst fracture of lumbar vertebra Status: Acute (2) Lumbar transverse process fracture Status: Acute (3) Prostatitis Status: Acute (4) Sepsis Status: Acute (5) Urinary retention Status: Acute Objective Vital Signs Date Time Temp Pulse Resp B/P (MAP) Pulse Ox O2 Delivery O2 Flow Rate FiO2 02/05/17 16:00 Room Air 02/05/17 15:44 38.1 62 16 103/68 (80) 94 02/05/17 14:00 39.3 02/05/17 13:30 37.4 02/05/17 08:00 37.0 67 20 125/79 94 Room Air 02/05/17 07:40 37.0 67 20 125/79 (94) 94 02/05/17 06:30 37.7 62 18 137/78 02/05/17 06:16 70 16 131/90 99 02/05/17 04:12 63 17 110/75 96 Room Air 02/05/17 03:12 37.0 69 16 142/88 96 Room Air Physical Exam Comments: no obvious necrosis of skin near anus Laboratory Results Last 24 Hours Test 02/05/17 03:40 02/05/17 05:10 02/05/17 16:17 White Blood Count 17.02 K/uL 12.69 K/uL Red Blood Count 5.05 M/uL 4.70 M/uL Hemoglobin 15.1 g/dL 14.0 g/dL Hematocrit 42.1 % 39.2 % Mean Corpuscular Volume 83.4 fL 83.4 fL Mean Corpuscular Hemoglobin 29.9 pg 29.8 pg Mean Corpuscular Hemoglobin Concent 35.9 g/dl 35.7 g/dl Platelet Count 196 K/uL 163 K/uL Mean Platelet Volume 9.5 fL 9.4 fL Neutrophils (%) (Auto) 85.8 % 89.1 % Lymphocytes (%) (Auto) 3.6 % 5.8 % Monocytes (%) (Auto) 10.2 % 4.7 % Eosinophils (%) (Auto) 0.1 % 0.0 % Basophils (%) (Auto) 0.1 % 0.2 % Neutrophils # (Auto) 14.62 K/uL 11.30 K/uL Lymphocytes # (Auto) 0.61 K/uL 0.74 K/uL Monocytes # (Auto) 1.73 K/uL 0.60 K/uL Eosinophils # (Auto) 0.01 K/uL 0.00 K/uL Basophils # (Auto) 0.01 K/uL 0.02 K/uL RDW Standard Deviation 41.7 fL 42.2 fL RDW Coefficient of Variation 13.9 % 13.9 % Immature Granulocyte % (Auto) 0.2 % 0.2 % Immature Granulocyte # (Auto) 0.04 K/uL 0.03 K/uL Urine Color ORANGE Urine Appearance CLEAR Urine pH 8.0 Urine Specific [place] 1.011 Urine Protein NEG Urine Glucose (UA) NEG Urine Ketones NEG Urine Occult Blood 3+ Urine Nitrite POS Urine Bilirubin NEG Urine Urobilinogen NEG Urine Leukocyte Esterase LARGE Urine WBC (Auto) >30 /hpf Urine RBC (Auto) >30 /hpf Urine Hyaline Casts (Auto) 1-5 /lpf Urine Epithelial Cells (Auto) 0-5 /lpf Urine Bacteria (Auto) 4+ Sodium Level 137 mmol/L 140 mmol/L 137 mmol/L Potassium Level 4.0 mmol/L 4.3 mmol/L 3.6 mmol/L Chloride Level 103 mmol/L 106 mmol/L 106 mmol/L Carbon Dioxide Level 29 mmol/L 29 mmol/L 26 mmol/L Anion Gap 5.0 mmol/L 5.0 mmol/L 5.0 mmol/L Blood Urea Nitrogen 19 mg/dl 17 mg/dl 15 mg/dl Creatinine 1.10 mg/dl 1.20 mg/dl 1.10 mg/dl Est Creatinine Clear Calc Drug Dose 71.3 ml/min 65.3 ml/min 71.3 ml/min Estimated GFR () 81.2 73.1 81.2 Estimated GFR (Non- 70.1 63.1 70.1 BUN/Creatinine Ratio 17.0 14.5 13.7 Random Glucose 100 mg/dl 109 mg/dl 127 mg/dl Calcium Level 9.0 mg/dl 8.2 mg/dl 8.3 mg/dl C-Reactive Protein 5.59 mg/dl Lactic Acid Level 1.3 mmol/L 1.4 mmol/L Total Bilirubin 1.5 mg/dl Aspartate Amino Transf (AST/SGOT) 15 U/L Alanine Aminotransferase (ALT/SGPT) 23 U/L Alkaline Phosphatase 65 U/L Total Protein 5.5 gm/dl Albumin 3.1 gm/dl Globulin 2.4 gm/dl Albumin/Globulin Ratio 1.[address] pending cultures pending wbc down to 12.69 cont antibiotics
--- NOTE | 2017-02-05 18:03 | Medical Consult ---
Consultation Date of Consultation: Feb 05, 2017. Attending Physician: Gilmer Grubbs M.D. Reason for Consultation: urinary retention and fevers s/p hemorrhoid surgery History of Present Illness 66 year old male admitted with fevers, leukocytosis, and urinary retention. He is POD#2 status post 2 column [address] Dr. Meléndez, colorectal surgeon at [facility]. Yesterday he started having fevers, chills, and rigors. he developed urinary retention and pelvic pain. He is passing gas but no bm. Presented to ED with fever and wbc 18, >500 cc urine no catheterization. He was admitted and placed on broad spectrum antibiotics and felt to have prostatitis. He spoke with his surgeon who was concerned with pelvic gangrene or pelvic sepsis. He just finished drinking contrast and is scheduled for CT at 1800. He is feeling better with renee placement and antibiotics. 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 rash, 02/05/17) was on 3 abx post-op. not certain which caused reaction- HAS HAD ZOSYN W/O PROBLEM SIND THEN Vancomycin (Verified Allergy, Unknown, ? rash, 02/05/17) on 3 abx post-op uncertain which caused reaction-HAS HAD ZOSYN W/O PROBLEM SINCE THEN Home Medications Active Reported Citalopram Hydrobromide 20 Mg Tab 20 Mg PO DAILY [place]-3 (Fish Oil) 1 Ea Cap 1,000 Mg PO DAILY Vitamin D3 (Cholecalciferol) 2,000 Unit Cap 2,000 Units PO DAILY Ativan (Lorazepam) 0.5 Mg Tab 0.5 Mg PO TID PRN Calcium + D (Calcium Carbonate-Vitamin D) 1 Tab Tab 2 Tab PO HS Advil (Ibuprofen) 200 Mg Tab 200 Mg PO 2 X WEEKLY PRN Rapaflo (Silodosin) 8 Mg Cap 8 Mg PO QAM Prevacid (Lansoprazole) 30 Mg Capcr 30 Mg PO QAM Bystolic (Nebivolol Hcl) 10 Mg Tab 10 Mg PO QAM Aspirin Chewable (Aspirin) 81 Mg Chew 162 Mg PO QAM Multivitamin (Multiple Vitamin) 1 Tab Tab 1 Tab PO HS Current Inpatient Medications Current Inpatient Medications Medications (Trade) Dose Ordered Sig/Lesli Route Start Time Stop Time Status Last Admin Dose Admin Acetaminophen (Tylenol Tab) 650 mg Q4H PRN PO 02/05/17 06:00 03/07/17 05:59 02/05/17 14:04 650 MG Magnesium Hydroxide (Milk Of Magnesia Susp) 30 ml Q6H PRN PO 02/05/17 06:00 03/07/17 05:59 02/05/17 11:35 30 ML Polyethylene (Miralax Powder Packet) 17 gm DAILY PO 02/05/17 08:00 03/07/17 08:59 02/05/17 08:46 17 GM Sodium Chloride 1,000 ml @ 100 mls/hr Q10H IV 02/05/17 06:00 03/07/17 05:59 02/05/17 15:38 100 MLS/HR Ondansetron HCl 8 mg/Dextrose 54 ml @ 200 mls/hr Q4H PRN IV 02/05/17 06:00 03/07/17 05:59 02/05/17 16:15 200 MLS/HR Aspirin (Aspirin Chew) 162 mg QAM PO 02/05/17 08:00 03/07/17 08:59 02/05/17 08:45 162 MG Fish Oil ([place]-3 (Purified Fish Oil) Cap) 1 gm DAILY PO 02/05/17 08:00 03/07/17 08:59 02/05/17 08:45 1 GM Lorazepam (Ativan Tab) 0.5 mg TID PRN PO 02/05/17 06:00 03/07/17 05:59 Multivitamins (Multivitamin Tab) 1 tab HS PO 02/05/17 21:00 03/07/17 20:59 Nebivolol (Bystolic Tab) 10 mg DAILY PO 02/05/17 09:00 03/07/17 08:59 02/05/17 08:51 10 MG Pantoprazole Sodium (Protonix Tab) 40 mg QAM PO 02/05/17 08:00 03/07/17 08:59 02/05/17 08:44 40 MG Acetaminophen/ Hydrocodone Bitart ([place] 5/325 Tab) 1 tab Q4H PRN PO 02/05/17 06:00 02/19/17 05:59 02/05/17 11:30 1 TAB Calcium/Vitamin D (Caltrate Plus Tab) 1 tab BID PO 02/05/17 08:00 03/07/17 08:59 02/05/17 08:45 1 TAB Cholecalciferol (Vitamin D Tab) 2,000 inter.unit QAM PO 02/05/17 08:00 03/07/17 08:59 02/05/17 08:44 2,000 INTER.UNIT Silodosin (Rapaflo Cap) 8 mg QAM PO 02/06/17 08:00 03/08/17 07:59 Ioversol (Optiray 320) 100 ml UD PRN IV 02/05/17 16:15 02/09/17 16:14 Ertapenem 1 gm/ Sodium Chloride 50 ml @ 120 mls/hr Q24H IV 02/05/17 18:00 02/15/17 17:59 Review of Systems Constitutional: + fever, + chills, + sweats, + fatigue Eyes: No worsening of vision, No eye pain, No redness, No discharge, No diplopia, No problem reported ENT: No hearing loss, No unusual epistaxis, No nasal symptoms, No sore throat, No tinnitus, No dental problems, No trouble swallowing, No problem reported Respiratory: No cough, No sputum, No wheezing, No shortness of breath, No dyspnea on exertion, No dyspnea at rest, No hemoptysis, No problem reported Cardiovascular: No chest pain, No orthopnea, No PND, No edema, No claudication , No palpitations, No problem reported Abdomen: No pain, No nausea, No vomiting, No diarrhea, No constipation, No GI bleeding, No problem reported Musculoskeletal: No joint pain, No muscle pain, No swelling, No calf pain, No problem reported Genitourinary - Male: + urinary retention Neurologic: No memory loss, No paralysis, No weakness, No numbness/tingling, No vertigo, No balance problems, No problem reported Psychiatric: No depression symptoms, No anhedonism, No anxiety, No insomnia, No substance abuse, No problem reported Endocrine: No fatigue, No excessive thirst, No excessive urination, No problem reported Hematologic / Lymphatic: No abnormal bleeding/bruising, No clotting problems, No swollen lymph nodes, No night sweats, No problem reported Integumentary: No rash, No itch, No new/changing skin lesions, No color change , No bleeding, No problem reported Allergic / Immunologic: No environmental allergies, No seasonal allergies, No pet sensitivities, No food allergies, No hives, No frequent infections, No poor healing, No prolonged convalescence, No problem reported Physical Exam Date Time Temp Pulse Resp B/P (MAP) Pulse Ox O2 Delivery O2 Flow Rate FiO2 02/05/17 16:00 Room Air 02/05/17 15:44 38.1 62 16 103/68 (80) 94 02/05/17 14:00 39.3 02/05/17 13:30 37.4 02/05/17 08:00 37.0 67 20 125/79 94 Room Air 02/05/17 07:40 37.0 67 20 125/79 (94) 94 02/05/17 06:30 37.7 62 18 137/78 02/05/17 06:16 70 16 131/90 99 02/05/17 04:12 63 17 110/75 96 Room Air 02/05/17 03:12 37.0 69 16 142/88 96 Room Air General Appearance: WD/WN, no apparent distress Head: normocephalic, atraumatic Eyes: normal inspection, PERRL, EOMI ENT: normal ENT inspection, hearing grossly normal Neck: supple, no adenopathy, thyroid normal Respiratory/Chest: chest non-tender, lungs clear, normal breath sounds Cardiovascular: regular rate, rhythm, no edema, no murmur Abdomen/GI: normal bowel sounds, non tender, soft, + pertinent finding (anus and perineum with no erythema or induration, non tender. Gentle XOCHILT with small amount of blood, sutures in place, bogginess but no definite evidence of infection) Genitourinary - Male: normal male genitalia, normal phallus, normal testicles Back: normal inspection, no CVA tenderness Extremities/Musculoskelatal: normal inspection, no calf tenderness Neurologic/Psych: risk assessor II-XII nml as tested, no motor/sensory deficits, alert, normal mood/affect, normal reflexes, oriented x 3 Skin: normal color, warm/dry, no rash Lymphatic: no adenopathy Laboratory Results Last 24 Hours Test 02/05/17 03:40 02/05/17 05:10 02/05/17 16:17 White Blood Count 17.02 K/uL 12.69 K/uL Red Blood Count 5.05 M/uL 4.70 M/uL Hemoglobin 15.1 g/dL 14.0 g/dL Hematocrit 42.1 % 39.2 % Mean Corpuscular Volume 83.4 fL 83.4 fL Mean Corpuscular Hemoglobin 29.9 pg 29.8 pg Mean Corpuscular Hemoglobin Concent 35.9 g/dl 35.7 g/dl Platelet Count 196 K/uL 163 K/uL Mean Platelet Volume 9.5 fL 9.4 fL Neutrophils (%) (Auto) 85.8 % 89.1 % Lymphocytes (%) (Auto) 3.6 % 5.8 % Monocytes (%) (Auto) 10.2 % 4.7 % Eosinophils (%) (Auto) 0.1 % 0.0 % Basophils (%) (Auto) 0.1 % 0.2 % Neutrophils # (Auto) 14.62 K/uL 11.30 K/uL Lymphocytes # (Auto) 0.61 K/uL 0.74 K/uL Monocytes # (Auto) 1.73 K/uL 0.60 K/uL Eosinophils # (Auto) 0.01 K/uL 0.00 K/uL Basophils # (Auto) 0.01 K/uL 0.02 K/uL RDW Standard Deviation 41.7 fL 42.2 fL RDW Coefficient of Variation 13.9 % 13.9 % Immature Granulocyte % (Auto) 0.2 % 0.2 % Immature Granulocyte # (Auto) 0.04 K/uL 0.03 K/uL Urine Color ORANGE Urine Appearance CLEAR Urine pH 8.0 Urine Specific [place] 1.011 Urine Protein NEG Urine Glucose (UA) NEG Urine Ketones NEG Urine Occult Blood 3+ Urine Nitrite POS Urine Bilirubin NEG Urine Urobilinogen NEG Urine Leukocyte Esterase LARGE Urine WBC (Auto) >30 /hpf Urine RBC (Auto) >30 /hpf Urine Hyaline Casts (Auto) 1-5 /lpf Urine Epithelial Cells (Auto) 0-5 /lpf Urine Bacteria (Auto) 4+ Sodium Level 137 mmol/L 140 mmol/L 137 mmol/L Potassium Level 4.0 mmol/L 4.3 mmol/L 3.6 mmol/L Chloride Level 103 mmol/L 106 mmol/L 106 mmol/L Carbon Dioxide Level 29 mmol/L 29 mmol/L 26 mmol/L Anion Gap 5.0 mmol/L 5.0 mmol/L 5.0 mmol/L Blood Urea Nitrogen 19 mg/dl 17 mg/dl 15 mg/dl Creatinine 1.10 mg/dl 1.20 mg/dl 1.10 mg/dl Est Creatinine Clear Calc Drug Dose 71.3 ml/min 65.3 ml/min 71.3 ml/min Estimated GFR () 81.2 73.1 81.2 Estimated GFR (Non- 70.1 63.1 70.1 BUN/Creatinine Ratio 17.0 14.5 13.7 Random Glucose 100 mg/dl 109 mg/dl 127 mg/dl Calcium Level 9.0 mg/dl 8.2 mg/dl 8.3 mg/dl C-Reactive Protein 5.59 mg/dl Lactic Acid Level 1.3 mmol/L 1.4 mmol/L Total Bilirubin 1.5 mg/dl Aspartate Amino Transf (AST/SGOT) 15 U/L Alanine Aminotransferase (ALT/SGPT) 23 U/L Alkaline Phosphatase 65 U/L Total Protein 5.5 gm/dl Albumin 3.1 gm/dl Globulin 2.4 gm/dl Albumin/Globulin Ratio 1.3 Assessment & Plan A: 66 year old male 2 days s/p hemorrhoidectomy, now with fevers, leukocytosis , and urinary retention. No overt evidence of infection on physical exam, but still concerning for pelvic sepsis or pelvic gangrene. CT pending. fever curve and wbc downtrending since this morning. Plan: agree with broad spectrum antibiotics continue renee follow up with CT results if CT reveals pelvic gangrene or severe pelvic sepsis or pelvic abscess, consider transfer to tertiary center as this can be a life threatening infection and difficult to treat. surgery will follow plan of care discussed with patient, all questions answered, patient expressed understanding and agrees with plan of care as stated Lila Richard DO
--- NOTE | 2017-02-05 18:47 | DIAGNOSTIC IMAGING REPORT ---
CT ABD/PELVIS IV AND ORAL CONT CLINICAL HISTORY: Peroneal pain. Postop hemorrhoidectomy. Urinary retention. Possible postsurgical abscess. COMPARISON STUDY: CT scan the chest dated 05/19/2009 TECHNIQUE: Following the IV administration of 120 mL of Optiray-320, CT scan of the abdomen and pelvis was performed from the lung bases to the proximal femurs. Images are reviewed in the axial, sagittal, and coronal planes. IV contrast was administered without complication. A dose lowering technique was utilized adhering to the principles of ALARA. CT DOSE: FINDINGS: Lower chest: There is a 7 mm solid right lower lobe pulmonary nodule as visualized in image #[id number]. This remains unchanged from the prior April 2009 study. Liver: There is a 13 mm hypodensity within the right lobe of the liver posteriorly which in retrospect was likely present on the preceding study. There is a 1 cm hypodense nodule within the lateral segment the left lobe of the liver, possibly representing a cyst. There is a 1 cm hypodense nodule within the right lobe of the liver immediately beneath the dome of the diaphragm. This also was likely present on the prior 2008 study. There is a 21 mm slightly hypervascular nodule within the left lobe of the liver. This also was present on the preceding study. Gallbladder: Unremarkable. Spleen: Normal in size and attenuation. Pancreas: Unremarkable. Adrenal glands: Unremarkable. Kidneys: No solid renal masses are visualized. There are several right renal cysts the 2 largest of which measure 63 mm, and 50 mm respectively. There is no hydronephrosis. Bowel: There are no transition zones to indicate bowel obstruction. The appendix is not visualized with certainty. There are no pericecal inflammatory changes. There is no acute diverticulitis. Peritoneum: There is no intraperitoneal free air or abdominal ascites. There are small fat-containing inguinal hernias left larger than right. Vasculature: The abdominal aorta is normal in course and caliber. Adenopathy: None. Pelvic viscera: There is an indwelling Cates catheter. There is mild prostamegaly. Skeletal structures: There is an old L1 compression fracture with minimal retropulsion. There are advanced degenerative changes at the L4-5 level with discogenic endplate sclerosis. IMPRESSION: 1. No evidence of abscess. 2. No evidence of bowel obstruction. No evidence of free air. 3. Stable x8 years 7 mm right lower lobe pulmonary nodule 4. Multiple hepatic lesions, essentially stable from the prior 2008 study and in all likelihood benign 5. Small bilateral fat-containing inguinal hernias 6. Mild prostamegaly. 7. Right renal cysts Electronically signed by: Alex Boland M.D. 02/05/2017 6:46 PM Dictated Date/Time: 02/05/2017 6:31 PM
[2017-02-05] MEDS: MULTIVITAMIN TAB PO SCH (19:24)
[2017-02-05] MEDS: ERTAPENEM IV 1 GM in SODIUM CHLOR 0.9% AD-VAN 50ML 50 ML IV SCH (19:24)
[2017-02-05] MEDS ORDERED: PIPERACILL/TAZOBAC IV 4.5 GM in DEXTROSE 5% 100ML 100 ML IV SCH (22:00)
[2017-02-06] VITALS (7 sets, daily range): BP systolic 112–126; BP diastolic 71–79; PULSE 51–62; TEMP 36.8–37.8; O2SAT 93–97
[2017-02-06] MEDS ORDERED: METRONIDAZOLE / NSS 500 MG in PREMIXED NSS 100 ML IV SCH
[2017-02-06] MEDS: SODIUM CHLORIDE 0.9% 1000ML 1,000 ML IV SCH ×3 (03:09→21:17)
[2017-02-06 07:10] LABS: BASO % 0.2 %; BASO ABS # 0.02 K/uL (0-0.2); COMPLETE YES; EOS % 0.4 %; HEMATOCRIT 38.9 % (42-52); IG% 0.3 %; LYMPH ABS # 0.57 K/uL (1.2-3.4); MEAN CELL VOLUME 83.5 fL (80-100); MEAN CORPUSCULAR HEMOGLOBIN 29.8 pg (25-34); MEAN CORPUSCULAR HGB CONC 35.7 g/dl (32-36); MEAN PLATELET VOLUME 9.8 fL (7.4-10.4); MONO % 10.7 %; NEUT % 83.4 %; PLATELET COUNT 161 K/uL (130-400); RED BLOOD COUNT 4.66 M/uL (4.7-6.1)
[2017-02-06 07:47] LABS: BUN/CREATININE RATIO 12.5 (10-20); CREATININE 1.1 mg/dl (0.60-1.40); POTASSIUM 4.5 mmol/L (3.5-5.1)
[2017-02-06] MEDS: CALCIUM 600MG + VIT D 400 IU TAB PO SCH ×2 (07:52→20:00)
[2017-02-06] MEDS: POLYETHYLENE (MIRALAX) 17 GM PACK PO SCH (07:52)
[2017-02-06] MEDS: CHOLECALCIFEROL 1000 INTER.UNIT TAB PO SCH (07:53)
[2017-02-06] MEDS: ASPIRIN 81 MG CHEW PO SCH (07:54)
[2017-02-06] MEDS: PANTOprazole SOD 40 MG TAB PO SCH (07:54)
[2017-02-06] MEDS: OMEGA-3 (PURIFIED FISH OIL) 1 GM CAP PO SCH (07:54)
[2017-02-06] MEDS: SILODOSIN 8 MG CAP PO SCH (07:57)
[2017-02-06] MEDS ORDERED: SILODOSIN 8 MG CAP PO SCH (08:00)
[2017-02-06] MEDS: NEBIVOLOL HCL 5 MG TAB PO SCH (08:48)
--- NOTE | 2017-02-06 09:55 | Progress Note ---
Progress Note Date of Service Feb 06, 2017. Progress Note 66-year-old male admitted through the emergency room with multiple problems including * Urinary retention * Urinary tract infection * Status post surgery for hemorrhoids done at [facility] * Arterial hypertension * Hyperlipidemia * Osteoarthritis Patient was admitted. A Cates catheter was placed. Cultures were done. He was started on IV antibiotics. His WBC count improved. Initially had recurrent fever. Yesterday he spoke with his surgeon. He discussed with him over the serious complications that could develop after hemorrhoid surgery. He was quite concerned. Multiple consultation were requested including Dr. Robbin Don in urology, Dr. Sohail Richard in surgery, Dr. Kimani Martel in infectious disease. CT scan of the abdomen and pelvis was done with oral and IV contrast. There was no evidence of any abscess formation. EXAMINATION : GENERAL: No distress VITAL SIGNS: Blood pressure 115/74, pulse 62, respirations 16, temperature 37.5 , oxygen saturation 97% on room air SKIN: Warm and dry. No rash. HEENT: Unremarkable. NECK: No adenopathy no thyromegaly no JVD. HEART: Regular heart sounds LUNGS: Clear ABDOMEN: Soft nontender EXTREMITIES: No edema clubbing or cyanosis Cates catheter in place LABORATORY TESTS : WBC count 11,400, hemoglobin 13.9, hematocrit 38.9, platelet count 161,000. Sodium 137, potassium 4.5, chloride 104, CO2 28, twice a day 14, creatinine 1.1 , glucose 106, calcium 9.0 Urine culture is growing gram-negative bacilli. Blood cultures are negative ASSESSMENT : * Urinary tract infection * Urinary retention * Status post surgery for hemorrhoids * Constipation PLAN : * Continue antibiotic as recommended by Dr. Martel. He is currently on ertapenem * Continue IV fluids * Dr. Don will decide about the Cates catheter and a voiding trial * Encouraged to ambulate. He has been doing so without much difficulty. * We will wait for the final culture report and Dr. Martel will decide on his antibiotic treatment
[2017-02-06] MEDS: MAGNESIUM HYDROXIDE SUSP 30 ML UDC PO PRN (10:09)
--- NOTE | 2017-02-06 11:24 | Progress Note ---
Subjective Date of Service: Feb 06, 2017. Subjective Pt evaluation today including: conversation w/ patient, chart review, lab review, review of studies Ct yesterday did not show actionable problem pt feels better today gram negative organism growing in urine sensitivity pending Problem List Medical Problems: (1) Burst fracture of lumbar vertebra Status: Acute (2) Lumbar transverse process fracture Status: Acute (3) Prostatitis Status: Acute (4) Sepsis Status: Acute (5) Urinary retention Status: Acute Objective Vital Signs Date Time Temp Pulse Resp B/P (MAP) Pulse Ox O2 Delivery O2 Flow Rate FiO2 02/06/17 08:00 94 Room Air 02/06/17 07:20 37.5 62 16 115/74 (88) 97 Room Air 02/06/17 00:00 94 Room Air 02/05/17 23:02 37.5 57 18 122/78 (93) 94 Room Air 02/05/17 20:00 94 Room Air 02/05/17 16:00 Room Air 02/05/17 15:44 38.1 62 16 103/68 (80) 94 02/05/17 14:00 39.3 02/05/17 13:30 37.4 Physical Exam General Appearance: no apparent distress Laboratory Results Last 24 Hours Test 02/05/17 16:17 02/06/17 06:53 White Blood Count 12.69 K/uL 11.40 K/uL Red Blood Count 4.70 M/uL 4.66 M/uL Hemoglobin 14.0 g/dL 13.9 g/dL Hematocrit 39.2 % 38.9 % Mean Corpuscular Volume 83.4 fL 83.5 fL Mean Corpuscular Hemoglobin 29.8 pg 29.8 pg Mean Corpuscular Hemoglobin Concent 35.7 g/dl 35.7 g/dl Platelet Count 163 K/uL 161 K/uL Mean Platelet Volume 9.4 fL 9.8 fL Neutrophils (%) (Auto) 89.1 % 83.4 % Lymphocytes (%) (Auto) 5.8 % 5.0 % Monocytes (%) (Auto) 4.7 % 10.7 % Eosinophils (%) (Auto) 0.0 % 0.4 % Basophils (%) (Auto) 0.2 % 0.2 % Neutrophils # (Auto) 11.30 K/uL 9.51 K/uL Lymphocytes # (Auto) 0.74 K/uL 0.57 K/uL Monocytes # (Auto) 0.60 K/uL 1.22 K/uL Eosinophils # (Auto) 0.00 K/uL 0.05 K/uL Basophils # (Auto) 0.02 K/uL 0.02 K/uL RDW Standard Deviation 42.2 fL 42.2 fL RDW Coefficient of Variation 13.9 % 14.0 % Immature Granulocyte % (Auto) 0.2 % 0.3 % Immature Granulocyte # (Auto) 0.03 K/uL 0.03 K/uL Sodium Level 137 mmol/L 137 mmol/L Potassium Level 3.6 mmol/L 4.5 mmol/L Chloride Level 106 mmol/L 104 mmol/L Carbon Dioxide Level 26 mmol/L 28 mmol/L Anion Gap 5.0 mmol/L 5.0 mmol/L Blood Urea Nitrogen 15 mg/dl 14 mg/dl Creatinine 1.10 mg/dl 1.10 mg/dl Est Creatinine Clear Calc Drug Dose 71.3 ml/min 71.3 ml/min Estimated GFR () 81.2 81.2 Estimated GFR (Non- 70.1 70.1 BUN/Creatinine Ratio 13.7 12.5 Random Glucose 127 mg/dl 106 mg/dl Lactic Acid Level 1.4 mmol/L Calcium Level 8.3 mg/dl 9.0 mg/dl Assessment and Plan Sensitivities pending would switch to bactrim if sensitive for a month otherwise levequin and follow creatinine for a month if sensitive Voiding trial in AM Continued [facility] stay due to: fever, voiding difficulties, multiple IV medications needed
--- NOTE | 2017-02-06 12:37 | Surgery Progress Note ---
Surgery Progress Note Date of Service Feb 06, 2017. Subjective 66 year old male POD#3 status post 2 column hemorrhoidectomy admitted with fevers and urinary retention secondary to prostatitis. Initial concern for pelvic sepsis, however CT scan yesterday very reassuring and only shows moderate prostate enlargement. Feeling better, afebrile, pain improved. Objective Vital Signs: Date Time Temp Pulse Resp B/P (MAP) Pulse Ox O2 Delivery O2 Flow Rate FiO2 02/06/17 08:00 94 Room Air 02/06/17 07:20 37.5 62 16 115/74 (88) 97 Room Air 02/06/17 00:00 94 Room Air 02/05/17 23:02 37.5 57 18 122/78 (93) 94 Room Air 02/05/17 20:00 94 Room Air 02/05/17 16:00 Room Air 02/05/17 15:44 38.1 62 16 103/68 (80) 94 02/05/17 14:00 39.3 02/05/17 13:30 37.4 General Appearance: WD/WN, no apparent distress Head: normocephalic, atraumatic Neck: supple, no adenopathy, thyroid normal, no JVD, no carotid bruits, trachea midline Respiratory/Chest: chest non-tender, lungs clear, normal breath sounds, no respiratory distress, no accessory muscle use Cardiovascular: regular rate, rhythm, no edema, no gallop, no JVD, no murmur Abdomen: normal bowel sounds, non tender, non distended, soft, no organomegaly , no pulsatile mass Extremities: normal range of motion, non-tender, normal inspection, no pedal edema, no calf tenderness, normal capillary refill, pelvis stable Laboratory Results: Results Past 24 Hours Test 02/05/17 16:17 02/06/17 06:53 Range/Units White Blood Count 12.69 11.40 4.8-10.8 K/uL Red Blood Count 4.70 4.66 4.7-6.1 M/uL Hemoglobin 14.0 13.9 14.0-18.0 g/dL Hematocrit 39.2 38.9 42-52 % Mean Corpuscular Volume 83.4 83.5 80-100 fL Mean Corpuscular Hemoglobin 29.8 29.8 25-34 pg Mean Corpuscular Hemoglobin Concent 35.7 35.7 32-36 g/dl Platelet Count 163 161 130-400 K/uL Mean Platelet Volume 9.4 9.8 7.4-10.4 fL Neutrophils (%) (Auto) 89.1 83.4 % Lymphocytes (%) (Auto) 5.8 5.0 % Monocytes (%) (Auto) 4.7 10.7 % Eosinophils (%) (Auto) 0.0 0.4 % Basophils (%) (Auto) 0.2 0.2 % Neutrophils # (Auto) 11.30 9.51 1.4-6.5 K/uL Lymphocytes # (Auto) 0.74 0.57 1.2-3.4 K/uL Monocytes # (Auto) 0.60 1.22 0.11-0.59 K/uL Eosinophils # (Auto) 0.00 0.05 0-0.5 K/uL Basophils # (Auto) 0.02 0.02 0-0.2 K/uL RDW Standard Deviation 42.2 42.2 36.4-46.3 fL RDW Coefficient of Variation 13.9 14.0 11.5-14.5 % Immature Granulocyte % (Auto) 0.2 0.3 % Immature Granulocyte # (Auto) 0.03 0.03 0.00-0.02 K/uL Sodium Level 137 137 136-145 mmol/L Potassium Level 3.6 4.5 3.5-5.1 mmol/L Chloride Level 106 104 98-107 mmol/L Carbon Dioxide Level 26 28 21-32 mmol/L Anion Gap 5.0 5.0 3-11 mmol/L Blood Urea Nitrogen 15 14 7-18 mg/dl Creatinine 1.10 1.10 0.60-1.40 mg/dl Est Creatinine Clear Calc Drug Dose 71.3 71.3 ml/min Estimated GFR () 81.2 81.2 Estimated GFR (Non- 70.1 70.1 BUN/Creatinine Ratio 13.7 12.5 10-20 Random Glucose 127 106 70-99 mg/dl Lactic Acid Level 1.4 0.4-2.0 mmol/L Calcium Level 8.3 9.0 8.5-10.1 mg/dl Diagnostic Interpretation: CT ABD/PELVIS IV AND ORAL CONT CLINICAL HISTORY: Peroneal pain. Postop hemorrhoidectomy. Urinary retention. Possible postsurgical abscess. COMPARISON STUDY: CT scan the chest dated 05/19/2009 TECHNIQUE: Following the IV administration of 120 mL of Optiray-320, CT scan of the abdomen and pelvis was performed from the lung bases to the proximal femurs. Images are reviewed in the axial, sagittal, and coronal planes. IV contrast was administered without complication. A dose lowering technique was utilized adhering to the principles of ALARA. CT DOSE: FINDINGS: Lower chest: There is a 7 mm solid right lower lobe pulmonary nodule as visualized in image #8/516. This remains unchanged from the prior April 2009 study. Liver: There is a 13 mm hypodensity within the right lobe of the liver posteriorly which in retrospect was likely present on the preceding study. There is a 1 cm hypodense nodule within the lateral segment the left lobe of the liver, possibly representing a cyst. There is a 1 cm hypodense nodule within the right lobe of the liver immediately beneath the dome of the diaphragm. This also was likely present on the prior 2008 study. There is a 21 mm slightly hypervascular nodule within the left lobe of the liver. This also was present on the preceding study. Gallbladder: Unremarkable. Spleen: Normal in size and attenuation. Pancreas: Unremarkable. Adrenal glands: Unremarkable. Kidneys: No solid renal masses are visualized. There are several right renal cysts the 2 largest of which measure 63 mm, and 50 mm respectively. There is no hydronephrosis. Bowel: There are no transition zones to indicate bowel obstruction. The appendix is not visualized with certainty. There are no pericecal inflammatory changes. There is no acute diverticulitis. Peritoneum: There is no intraperitoneal free air or abdominal ascites. There are small fat-containing inguinal hernias left larger than right. Vasculature: The abdominal aorta is normal in course and caliber. Adenopathy: None. Pelvic viscera: There is an indwelling Cates catheter. There is mild prostamegaly. Skeletal structures: There is an old L1 compression fracture with minimal retropulsion. There are advanced degenerative changes at the L4-5 level with discogenic endplate sclerosis. IMPRESSION: 1. No evidence of abscess. 2. No evidence of bowel obstruction. No evidence of free air. 3. Stable x8 years 7 mm right lower lobe pulmonary nodule 4. Multiple hepatic lesions, essentially stable from the prior 2008 study and in all likelihood benign 5. Small bilateral fat-containing inguinal hernias 6. Mild prostamegaly. 7. Right renal cysts Electronically signed by: Alex Boland M.D. 02/05/2017 6:46 PM RUN DATE: 02/06/17 [facility] LAB PAGE 1 RUN TIME: 809 Specimen Inquiry PATIENT: ANAHY OCAMPO LOC: Tanisha U # : [id number] AGE/SX: 66/M ROOM: E412 REG : 02/05/[address]: Gilmer Grubbs M. : 1950 BED: 1 DIS : STATUS: ADM IN TLOC: SPEC #: [id number] BARBARA: 02/05/17 STATUS: RES REQ #: [id number] RECD: 02/05/[address]: Imer Gilmore M.D. SOURCE: URINE CATH ENTR: 02/05/17-[address] [facility] [address]: Gilmer Grubbs M.D. [facility]: ORDERED: CULTURE UR CATH Procedure Result Verified Site URINE CULTURE Preliminary 02/06/17-0810 Organism 1 GRAM NEGATIVE BACILLI COLONY COUNT 50,000 CFU/ml SENS SENSITIVITY TO FOLLOW Assessment & Plan s/p hemorrhoidectomy with prostatitis, no evidence of pelvic sepsis, improving with IV abx. Darryn likely out tomorrow, transition to oral abx pending speciation and sensitivities. No surgical intervention indicated surgery will follow for now Lila Richard, DO
[2017-02-06] MEDS: HYDROCODONE/ACETAMOPHEN 5/325MG TAB PO PRN ×2 (17:00→21:17)
--- NOTE | 2017-02-06 17:37 | Infectious Disease Progress Nt ---
Progress Note Date of Service Feb 06, 2017. Subjective Pt evaluation today including: conversation w/ patient, conversation w/ family , physical exam, chart review, lab review, review of studies, conversation w/ art consultant, review of inpatient medication list patient feeling better today, has had bowel movement, temperature has been down so far. Tolerating antibiotics without apparent difficulty. Urine growing gram-negative bacilli. Blood cultures remain negative. CT scan of the abdomen, read by me, shows no obvious collection or other significant finding other than enlarged prostate. All Other Systems: Reviewed and Negative Medications Current Inpatient Medications Medications (Trade) Dose Ordered Sig/Lesli Route Start Time Stop Time Status Last Admin Dose Admin Acetaminophen (Tylenol Tab) 650 mg Q4H PRN PO 02/05/17 06:00 03/07/17 05:59 02/05/17 14:04 650 MG Magnesium Hydroxide (Milk Of Magnesia Susp) 30 ml Q6H PRN PO 02/05/17 06:00 03/07/17 05:59 02/06/17 10:09 30 ML Polyethylene (Miralax Powder Packet) 17 gm DAILY PO 02/05/17 08:00 03/07/17 08:59 02/06/17 07:52 17 GM Sodium Chloride 1,000 ml @ 100 mls/hr Q10H IV 02/05/17 06:00 03/07/17 05:59 02/06/17 12:57 100 MLS/HR Ondansetron HCl 8 mg/Dextrose 54 ml @ 200 mls/hr Q4H PRN IV 02/05/17 06:00 03/07/17 05:59 02/05/17 16:15 200 MLS/HR Aspirin (Aspirin Chew) 162 mg QAM PO 02/05/17 08:00 03/07/17 08:59 02/06/17 07:54 162 MG Fish Oil ([place]-3 (Purified Fish Oil) Cap) 1 gm DAILY PO 02/05/17 08:00 03/07/17 08:59 02/06/17 07:54 1 GM Lorazepam (Ativan Tab) 0.5 mg TID PRN PO 02/05/17 06:00 03/07/17 05:59 Multivitamins (Multivitamin Tab) 1 tab HS PO 02/05/17 21:00 03/07/17 20:59 02/05/17 19:24 1 TAB Nebivolol (Bystolic Tab) 10 mg DAILY PO 02/05/17 09:00 03/07/17 08:59 02/06/17 08:48 10 MG Pantoprazole Sodium (Protonix Tab) 40 mg QAM PO 02/05/17 08:00 03/07/17 08:59 02/06/17 07:54 40 MG Acetaminophen/ Hydrocodone Bitart ([place] 5/325 Tab) 1 tab Q4H PRN PO 02/05/17 06:00 02/19/17 05:59 02/06/17 17:00 1 TAB Calcium/Vitamin D (Caltrate Plus Tab) 1 tab BID PO 02/05/17 08:00 03/07/17 08:59 02/06/17 07:52 1 TAB Cholecalciferol (Vitamin D Tab) 2,000 inter.unit QAM PO 02/05/17 08:00 03/07/17 08:59 02/06/17 07:53 2,000 INTER.UNIT Silodosin (Rapaflo Cap) 8 mg QAM PO 02/06/17 08:00 03/08/17 07:59 02/06/17 07:57 8 MG Ioversol (Optiray 320) 100 ml UD PRN IV 02/05/17 16:15 02/09/17 16:14 Ertapenem 1 gm/ Sodium Chloride 50 ml @ 120 mls/hr Q24H IV 02/05/17 18:00 02/15/17 17:59 02/05/17 19:24 120 MLS/HR Objective Vital Signs Date Time Temp Pulse Resp B/P (MAP) Pulse Ox O2 Delivery O2 Flow Rate FiO2 02/06/17 17:06 37.8 02/06/17 08:00 94 Room Air 02/06/17 07:20 37.5 62 16 115/74 (88) 97 Room Air 02/06/17 00:00 94 Room Air 02/05/17 23:02 37.5 57 18 122/78 (93) 94 Room Air 02/05/17 20:00 94 Room Air Physical Exam General Appearance: WD/WN, no apparent distress Eyes: normal inspection, sclerae normal ENT: normal ENT inspection, pharynx normal Neck: supple, no adenopathy, trachea midline Respiratory/Chest: chest non-tender, lungs clear, normal breath sounds, no respiratory distress Cardiovascular: regular rate, rhythm, no gallop, no murmur Abdomen: normal bowel sounds, non tender, soft, no organomegaly Extremities: non-tender, no calf tenderness Neurologic/Psychiatric: alert, oriented x 3 Skin: normal color, no rash Lymphatic: no adenopathy Laboratory Results RUN DATE: 02/06/17 [facility] LAB PAGE 1 RUN TIME: 08 Specimen Inquiry PATIENT: RONA OCAMPOJAIME Howard LOC: Tanisha U # : [id number] AGE/SX: 66/M ROOM: [facility] REG : 02/05/[address]: Gilmer Grubbs M. : 1950 BED: 1 DIS : STATUS: ADM IN TLOC: SPEC #: [id number] BARBARA: 02/05/17 STATUS: RES REQ #: [id number] RECD: 02/05/17 [facility] DR: Imer Gilmore M.D. SOURCE: URINE CATH ENTR: 02/05/17-[address] [facility] [address]: Gilmer Grubbs M.D. [facility]: ORDERED: CULTURE UR CATH Procedure Result Verified Site URINE CULTURE Preliminary 02/06/17-0810 Organism 1 GRAM NEGATIVE BACILLI COLONY COUNT 50,000 CFU/ml SENS SENSITIVITY TO FOLLOW Last 24 Hours Test 02/06/17 06:53 White Blood Count 11.40 K/uL Red Blood Count 4.66 M/uL Hemoglobin 13.9 g/dL Hematocrit 38.9 % Mean Corpuscular Volume 83.5 fL Mean Corpuscular Hemoglobin 29.8 pg Mean Corpuscular Hemoglobin Concent 35.7 g/dl Platelet Count 161 K/uL Mean Platelet Volume 9.8 fL Neutrophils (%) (Auto) 83.4 % Lymphocytes (%) (Auto) 5.0 % Monocytes (%) (Auto) 10.7 % Eosinophils (%) (Auto) 0.4 % Basophils (%) (Auto) 0.2 % Neutrophils # (Auto) 9.51 K/uL Lymphocytes # (Auto) 0.57 K/uL Monocytes # (Auto) 1.22 K/uL Eosinophils # (Auto) 0.05 K/uL Basophils # (Auto) 0.02 K/uL RDW Standard Deviation 42.2 fL RDW Coefficient of Variation 14.0 % Immature Granulocyte % (Auto) 0.3 % Immature Granulocyte # (Auto) 0.03 K/uL Sodium Level 137 mmol/L Potassium Level 4.5 mmol/L Chloride Level 104 mmol/L Carbon Dioxide Level 28 mmol/L Anion Gap 5.0 mmol/L Blood Urea Nitrogen 14 mg/dl Creatinine 1.10 mg/dl Est Creatinine Clear Calc Drug Dose 71.3 ml/min Estimated GFR () 81.2 Estimated GFR (Non- 70.1 BUN/Creatinine Ratio 12.5 Random Glucose 106 mg/dl Calcium Level 9.0 mg/dl Patient Name: ANAHY OCAMPO Unit Number: [id number] Dictated: 02/05/171830 Transcribed: 02/05/171830 ARG Printed Date/Time: [~ rep prt dt]/[~ rep prt tm] [~ rep ct labl] - [~ rep ct ivnm] [facility] [place] [address] Dictated: 02/05/171830 Transcribed: 02/05/171830 ARG Printed Date/Time: [~ rep prt dt]/[~ rep prt tm] [~ rep ct labl] - [~ rep ct ivnm] CT ABD/PELVIS IV AND ORAL CONT CLINICAL HISTORY: Peroneal pain. Postop hemorrhoidectomy. Urinary retention. Possible postsurgical abscess. COMPARISON STUDY: CT scan the chest dated 05/19/2009 TECHNIQUE: Following the IV administration of 120 mL of Optiray-320, CT scan of the abdomen and pelvis was performed from the lung bases to the proximal femurs. Images are reviewed in the axial, sagittal, and coronal planes. IV contrast was administered without complication. A dose lowering technique was utilized adhering to the principles of ALARA. CT DOSE: FINDINGS: Lower chest: There is a 7 mm solid right lower lobe pulmonary nodule as visualized in image #8/516. This remains unchanged from the prior April 2009 study. Liver: There is a 13 mm hypodensity within the right lobe of the liver posteriorly which in retrospect was likely present on the preceding study. There is a 1 cm hypodense nodule within the lateral segment the left lobe of the liver, possibly representing a cyst. There is a 1 cm hypodense nodule within the right lobe of the liver immediately beneath the dome of the diaphragm. This also was likely present on the prior 2009 study. There is a 21 mm slightly hypervascular nodule within the left lobe of the liver. This also was present on the preceding study. Gallbladder: Unremarkable. Spleen: Normal in size and attenuation. Pancreas: Unremarkable. Adrenal glands: Unremarkable. Kidneys: No solid renal masses are visualized. There are several right renal cysts the 2 largest of which measure 63 mm, and 50 mm respectively. There is no hydronephrosis. Bowel: There are no transition zones to indicate bowel obstruction. The appendix is not visualized with certainty. There are no pericecal inflammatory changes. There is no acute diverticulitis. Peritoneum: There is no intraperitoneal free air or abdominal ascites. There are small fat-containing inguinal hernias left larger than right. Vasculature: The abdominal aorta is normal in course and caliber. Adenopathy: None. Pelvic viscera: There is an indwelling Cates catheter. There is mild prostamegaly. Skeletal structures: There is an old L1 compression fracture with minimal retropulsion. There are advanced degenerative changes at the L4-5 level with discogenic endplate sclerosis. IMPRESSION: 1. No evidence of abscess. 2. No evidence of bowel obstruction. No evidence of free air. 3. Stable x8 years 7 mm right lower lobe pulmonary nodule 4. Multiple hepatic lesions, essentially stable from the prior 2009 study and in all likelihood benign 5. Small bilateral fat-containing inguinal hernias 6. Mild prostamegaly. 7. Right renal cysts Electronically signed by: Alex Boland M.D. 02/05/2017 6:46 PM Dictated Date/Time: 02/05/2017 6:31 PM The status of this report is Signed. Draft = Not yet reviewed or approved by Radiologist. Signed = Reviewed and approved by Radiologist. <AttendingPhy>Gilmer Grubbs M.D.</AttendingPhy> <FamilyPhy>Gilmer Grubbs M.D.</FamilyPhy> <PrimaryPhy>Gilmer Grubbs M.D.</PrimaryPhy> < UnitNumber>[id number]</UnitNumber> <VisitNumber>[id number]</VisitNumber> < PatientName>ANAHY OCAMPO</PatientName> <DateOfBirth>1950</DateOfBirth > <Location>C.4E</Location> <ServiceDate>02/05/17</ServiceDate> <MNE>ESINDI</MNE > <OrderingPhy>Gilmer Grubbs M.D.</OrderingPhy> <OrderingPhyMNE>f rep ord dr cohen</OrderingPhyMNE> <DictatingPhyMNE>f rep dict dr cohen</DictatingPhyMNE> < CCListMNE>f rep ct mne</CCListMNE> <AdmittingPhyMNE>f pt admit dr cohen</ AdmittingPhyMNE> <AttendingPhyMNE>f pt attend dr cohen</AttendingPhyMNE> <ConsultingPhyMNE>f pt consult dr cohen</ConsultingPhyMNE> <FamilyPhyMNE>f pt fam dr cohen</FamilyPhyMNE> <OtherPhyMNE>f pt other dr cohen</OtherPhyMNE> < PrimaryPhyMNE>f pt prim care dr cohen</PrimaryPhyMNE> <ReferringPhyMNE>f pt referring dr cohen</ReferringPhyMNE> Assessment and Plan Gram-negative urinary tract infection following hemorrhoidectomy, with what appears to be good clinical response to current IV antibiotics. Patient will continue on ertapenem pending final identification and sensitivities. Patient may require course of outpatient IV antibiotics, but will await sensitivities prior to making this determination. Will follow.
[2017-02-06] MEDS: ERTAPENEM IV 1 GM in SODIUM CHLOR 0.9% AD-VAN 50ML 50 ML IV SCH (18:37)
[2017-02-06] MEDS: MULTIVITAMIN TAB PO SCH (20:08)
[2017-02-07] MEDS: HYDROCODONE/ACETAMOPHEN 5/325MG TAB PO PRN ×3 (03:02→20:09)
[2017-02-07] MEDS: SILODOSIN 8 MG CAP PO SCH (03:57)
[2017-02-07 07:32] LABS: BASO % 0.2 %; BASO ABS # 0.01 K/uL (0-0.2); COMPLETE YES; EOS % 2.4 %; HEMATOCRIT 39.1 % (42-52); IG% 0.3 %; LYMPH % 10.7 %; LYMPH ABS # 0.67 K/uL (1.2-3.4); MEAN CELL VOLUME 83.9 fL (80-100); MEAN CORPUSCULAR HGB CONC 34.5 g/dl (32-36); MEAN PLATELET VOLUME 9.9 fL (7.4-10.4); MONO % 14.5 %; NEUT % 71.9 %; PLATELET COUNT 186 K/uL (130-400); RED BLOOD COUNT 4.66 M/uL (4.7-6.1); WHITE BLOOD COUNT 6.27 K/uL (4.8-10.8)
[2017-02-07 07:48] VITALS: BP 117/75; PULSE 54; TEMP 36.6; O2SAT 94
[2017-02-07 07:49] LABS: BUN/CREATININE RATIO 15.6 (10-20); CALCIUM 8.9 mg/dl (8.5-10.1)
--- NOTE | 2017-02-07 08:08 | Progress Note ---
Subjective Date of Service: Feb 07, 2017. Subjective Pt evaluation today including: conversation w/ patient, chart review, lab review Voiding: renee catheter in place (patent, draining clear, yellow urine) 66 yo male with UR and UTI s/p hemorrhoidectomy. Pt reports he is feeling much better this morning. Reports a large BM since yesterday. Afebrile overnight. White count has normalized. UC&S growing e coli. Sensitive to ertapenem, but resistant to Bactrim and fluoroquinolones. Problem List Medical Problems: (1) Burst fracture of lumbar vertebra Status: Acute (2) Lumbar transverse process fracture Status: Acute (3) Prostatitis Status: Acute (4) Sepsis Status: Acute (5) Urinary retention Status: Acute Review of Systems Constitutional: No fever, No chills Respiratory: No shortness of breath Cardiac: No chest pain Abdomen: No pain, No nausea, No vomiting Male : No hematuria Heme: No abnormal bleeding/bruising Objective Vital Signs Date Time Temp Pulse Resp B/P (MAP) Pulse Ox O2 Delivery O2 Flow Rate FiO2 02/07/17 07:48 36.6 54 16 117/75 (89) 94 Room Air 02/07/17 00:00 Room Air 02/06/17 23:34 36.8 51 18 112/71 (85) 94 Room Air 02/06/17 20:04 36.8 51 18 126/79 (95) 93 Room Air 02/06/17 18:43 37.4 02/06/17 17:06 37.8 02/06/17 17:00 Room Air 02/06/17 08:00 94 Room Air Physical Exam General Appearance: no apparent distress Eyes: normal inspection ENT: hearing grossly normal Neck: no JVD Respiratory/Chest: no respiratory distress, no accessory muscle use Cardiovascular: no JVD Extremities: normal inspection Neurologic/Psychiatric: alert, normal mood/affect, oriented x 3 Skin: normal color Laboratory Results Last 24 Hours Test 02/07/17 07:07 White Blood Count 6.27 K/uL Red Blood Count 4.66 M/uL Hemoglobin 13.5 g/dL Hematocrit 39.1 % Mean Corpuscular Volume 83.9 fL Mean Corpuscular Hemoglobin 29.0 pg Mean Corpuscular Hemoglobin Concent 34.5 g/dl Platelet Count 186 K/uL Mean Platelet Volume 9.9 fL Neutrophils (%) (Auto) 71.9 % Lymphocytes (%) (Auto) 10.7 % Monocytes (%) (Auto) 14.5 % Eosinophils (%) (Auto) 2.4 % Basophils (%) (Auto) 0.2 % Neutrophils # (Auto) 4.51 K/uL Lymphocytes # (Auto) 0.67 K/uL Monocytes # (Auto) 0.91 K/uL Eosinophils # (Auto) 0.15 K/uL Basophils # (Auto) 0.01 K/uL RDW Standard Deviation 41.9 fL RDW Coefficient of Variation 13.8 % Immature Granulocyte % (Auto) 0.3 % Immature Granulocyte # (Auto) 0.02 K/uL Sodium Level 140 mmol/L Potassium Level 4.0 mmol/L Chloride Level 106 mmol/L Carbon Dioxide Level 31 mmol/L Anion Gap 3.0 mmol/L Blood Urea Nitrogen 16 mg/dl Creatinine 1.00 mg/dl Est Creatinine Clear Calc Drug Dose 78.4 ml/min Estimated GFR () 91.1 Estimated GFR (Non- 78.6 BUN/Creatinine Ratio 15.6 Random Glucose 95 mg/dl Calcium Level 8.9 mg/dl Assessment and Plan A/P: Urinary retention and UTI Will attempt a TOV today. Check PVRs qshift. Continue Rapaflo. Management of UTI/possible prostatitis per Dr. Martel. May need 7-14 days of IV abx as culture is resistant to Bactrim and fluoroquinolones. Will arrange for outpatient f/u with Dr. Ferrara next week. Will continue to follow along with primary service. Continued [facility] stay due to: fever, voiding difficulties, multiple IV medications needed
[2017-02-07] MEDS: POLYETHYLENE (MIRALAX) 17 GM PACK PO SCH (09:49)
[2017-02-07] MEDS: ASPIRIN 81 MG CHEW PO SCH (09:50)
[2017-02-07] MEDS: CALCIUM 600MG + VIT D 400 IU TAB PO SCH ×2 (09:50→20:00)
[2017-02-07] MEDS: CHOLECALCIFEROL 1000 INTER.UNIT TAB PO SCH (09:51)
[2017-02-07] MEDS: NEBIVOLOL HCL 5 MG TAB PO SCH (09:51)
[2017-02-07] MEDS: OMEGA-3 (PURIFIED FISH OIL) 1 GM CAP PO SCH (09:51)
[2017-02-07] MEDS: PANTOprazole SOD 40 MG TAB PO SCH (09:52)
[2017-02-07] MEDS: SODIUM CHLORIDE 0.9% 1000ML 1,000 ML IV SCH (09:53)
--- NOTE | 2017-02-07 10:27 | Surgery Progress Note ---
Surgery Progress Note Date of Service Feb 07, 2017. Subjective 66 year old male POD#4 status post 2 column hemorrhoidectomy at [facility] admitted with fevers and urinary retention secondary to prostatitis, HD#3. Fever last night at 1700 but overall feeling much better. BM yesterday, renee pulled this morning. Culture E Coli resistant to bactrim and fluoroquinolones. Objective Vital Signs: Date Time Temp Pulse Resp B/P (MAP) Pulse Ox O2 Delivery O2 Flow Rate FiO2 02/07/17 07:48 36.6 54 16 117/75 (89) 94 Room Air 02/07/17 00:00 Room Air 02/06/17 23:34 36.8 51 18 112/71 (85) 94 Room Air 02/06/17 20:04 36.8 51 18 126/79 (95) 93 Room Air 02/06/17 18:43 37.4 02/06/17 17:06 37.8 02/06/17 17:00 Room Air General Appearance: WD/WN, no apparent distress Head: normocephalic, atraumatic Neck: supple, no adenopathy, thyroid normal, no JVD, no carotid bruits, trachea midline Respiratory/Chest: chest non-tender, lungs clear, normal breath sounds, no respiratory distress, no accessory muscle use Cardiovascular: regular rate, rhythm, no edema, no gallop, no JVD, no murmur Abdomen: normal bowel sounds, non tender, non distended, soft, no organomegaly , no pulsatile mass Extremities: normal range of motion, non-tender, normal inspection, no pedal edema, no calf tenderness, normal capillary refill, pelvis stable Laboratory Results: Results Past 24 Hours Test 02/07/17 07:07 Range/Units White Blood Count 6.27 4.8-10.8 K/uL Red Blood Count 4.66 4.7-6.1 M/uL Hemoglobin 13.5 14.0-18.0 g/dL Hematocrit 39.1 42-52 % Mean Corpuscular Volume 83.9 80-100 fL Mean Corpuscular Hemoglobin 29.0 25-34 pg Mean Corpuscular Hemoglobin Concent 34.5 32-36 g/dl Platelet Count 186 130-400 K/uL Mean Platelet Volume 9.9 7.4-10.4 fL Neutrophils (%) (Auto) 71.9 % Lymphocytes (%) (Auto) 10.7 % Monocytes (%) (Auto) 14.5 % Eosinophils (%) (Auto) 2.4 % Basophils (%) (Auto) 0.2 % Neutrophils # (Auto) 4.51 1.4-6.5 K/uL Lymphocytes # (Auto) 0.67 1.2-3.4 K/uL Monocytes # (Auto) 0.91 0.11-0.59 K/uL Eosinophils # (Auto) 0.15 0-0.5 K/uL Basophils # (Auto) 0.01 0-0.2 K/uL RDW Standard Deviation 41.9 36.4-46.3 fL RDW Coefficient of Variation 13.8 11.5-14.5 % Immature Granulocyte % (Auto) 0.3 % Immature Granulocyte # (Auto) 0.02 0.00-0.02 K/uL Sodium Level 140 136-145 mmol/L Potassium Level 4.0 3.5-5.1 mmol/L Chloride Level 106 98-107 mmol/L Carbon Dioxide Level 31 21-32 mmol/L Anion Gap 3.0 3-11 mmol/L Blood Urea Nitrogen 16 7-18 mg/dl Creatinine 1.00 0.60-1.40 mg/dl Est Creatinine Clear Calc Drug Dose 78.4 ml/min Estimated GFR () 91.1 Estimated GFR (Non- 78.6 BUN/Creatinine Ratio 15.6 10-20 Random Glucose 95 70-99 mg/dl Calcium Level 8.9 8.5-10.1 mg/dl Diagnostic Interpretation: RUN DATE: 02/07/17 [facility] LAB PAGE 1 RUN TIME: 0700 Specimen Inquiry PATIENT: ANAHY OCAMPO LOC: Tanisha U # : [id number] AGE/SX: 66/M ROOM: [facility] REG : 02/05/[address]: Gilmer Grubbs M. : 1950 BED: 1 DIS : STATUS: ADM IN TLOC: SPEC #: [id number] BARBARA: 02/05/17 STATUS: RES REQ #: [id number] RECD: 02/05/[address]: Imer Gilmore M.D. SOURCE: URINE CATH ENTR: 02/05/[address]: Gilmer Grubbs M.D. [facility]: ORDERED: CULTURE UR CATH Procedure Result Verified Site URINE CULTURE Preliminary 02/07/17-59 Organism 1 ESCHERICHIA COLI COLONY COUNT 50,000 CFU/ml SENS SENSITIVITY TO FOLLOW 1. ESCHERICHIA COLI Target Route Dose RX AB Cost M.I.C. IQ ------ ----- ------ -- ------ -------- - ------ TRIMET/SULFA R >2/38 AMPICILLIN S <=8 AMPICILLIN/SUL S <=8/4 CEFAZOLIN S <=8 CEFOTAXIME S <=2 CEFTRIAXONE S <=1 CEFEPIME S <=4 CEFUROXIME S <=4 IMIPENEM S <=1 GENTAMICIN S <=4 TOBRAMYCIN S <=4 AMIKACIN S <=16 CIPROFLOXACIN R >2 LEVOFLOXACIN R >4 ERTAPENEM S <=1 NITROFURANTOIN S <=32 PIP/TAZO S <=16 S = SENSITIVE I = INTERMEDIATE R = RESISTANT END OF REPORT Assessment & Plan s/p hemorrhoidectomy with prostatitis, no evidence of pelvic sepsis, improving with IV abx. Cultures with E coli resistant to bactrim and fluoroquinolones, abx per ID. Renee removed today. d/c per primary team. No surgical intervention indicated surgery will sign off, call with questions or concerns Lila Richard, DO
[2017-02-07 16:13] VITALS: BP 127/85; PULSE 48; TEMP 37; O2SAT 98
[2017-02-07] MEDS: ERTAPENEM IV 1 GM in SODIUM CHLOR 0.9% AD-VAN 50ML 50 ML IV SCH (17:37)
[2017-02-07 19:31] VITALS: BP 118/77; PULSE 46; TEMP 36.6; O2SAT 95
[2017-02-07] MEDS: MULTIVITAMIN TAB PO SCH (20:01)
--- NOTE | 2017-02-07 20:26 | Infectious Disease Progress Nt ---
Progress Note Date of Service Feb 07, 2017. Subjective Pt evaluation today including: conversation w/ patient, physical exam, chart review, lab review, review of studies, conversation w/ senior consumer insights consultant, review of inpatient medication list Patient feeling much improved today. Afebrile since last night. Has had bowel movement, Cates out and urinating without difficulty. No significant pain. Tolerating antibiotics. Cultures of urine growing quinolone and Bactrim resistant E coli. All Other Systems: Reviewed and Negative Medications Current Inpatient Medications Medications (Trade) Dose Ordered Sig/Lesli Route Start Time Stop Time Status Last Admin Dose Admin Acetaminophen (Tylenol Tab) 650 mg Q4H PRN PO 02/05/17 06:00 03/07/17 05:59 02/05/17 14:04 650 MG Magnesium Hydroxide (Milk Of Magnesia Susp) 30 ml Q6H PRN PO 02/05/17 06:00 03/07/17 05:59 02/06/17 10:09 30 ML Polyethylene (Miralax Powder Packet) 17 gm DAILY PO 02/05/17 08:00 03/07/17 08:59 02/06/17 07:52 17 GM Ondansetron HCl 8 mg/Dextrose 54 ml @ 200 mls/hr Q4H PRN IV 02/05/17 06:00 03/07/17 05:59 02/05/17 16:15 200 MLS/HR Aspirin (Aspirin Chew) 162 mg QAM PO 02/05/17 08:00 03/07/17 08:59 02/07/17 09:50 162 MG Fish Oil ([place]-3 (Purified Fish Oil) Cap) 1 gm DAILY PO 02/05/17 08:00 03/07/17 08:59 02/07/17 09:51 1 GM Lorazepam (Ativan Tab) 0.5 mg TID PRN PO 02/05/17 06:00 03/07/17 05:59 Multivitamins (Multivitamin Tab) 1 tab HS PO 02/05/17 21:00 03/07/17 20:59 02/05/17 19:24 1 TAB Nebivolol (Bystolic Tab) 10 mg DAILY PO 02/05/17 09:00 03/07/17 08:59 02/07/17 09:51 10 MG Pantoprazole Sodium (Protonix Tab) 40 mg QAM PO 02/05/17 08:00 03/07/17 08:59 02/07/17 09:52 40 MG Acetaminophen/ Hydrocodone Bitart ([place] 5/325 Tab) 1 tab Q4H PRN PO 02/05/17 06:00 02/19/17 05:59 02/07/17 20:09 1 TAB Calcium/Vitamin D (Caltrate Plus Tab) 1 tab BID PO 02/05/17 08:00 03/07/17 08:59 02/07/17 09:50 1 TAB Cholecalciferol (Vitamin D Tab) 2,000 inter.unit QAM PO 02/05/17 08:00 03/07/17 08:59 02/07/17 09:51 2,000 INTER.UNIT Silodosin (Rapaflo Cap) 8 mg QAM PO 02/06/17 08:00 03/08/17 07:59 02/07/17 03:57 8 MG Ioversol (Optiray 320) 100 ml UD PRN IV 02/05/17 16:15 02/09/17 16:14 Ertapenem 1 gm/ Sodium Chloride 50 ml @ 120 mls/hr Q24H IV 02/05/17 18:00 02/15/17 17:59 02/07/17 17:37 120 MLS/HR Objective Vital Signs Date Time Temp Pulse Resp B/P (MAP) Pulse Ox O2 Delivery O2 Flow Rate FiO2 02/07/17 19:31 36.6 46 18 118/77 (91) 95 Room Air 02/07/17 16:13 37.0 48 18 127/85 (99) 98 02/07/17 09:50 Room Air 02/07/17 07:48 36.6 54 16 117/75 (89) 94 Room Air 02/07/17 00:00 Room Air 02/06/17 23:34 36.8 51 18 112/71 (85) 94 Room Air Physical Exam General Appearance: WD/WN, no apparent distress Eyes: normal inspection, EOMI, sclerae normal ENT: normal ENT inspection, hearing grossly normal, pharynx normal Neck: supple, no adenopathy, trachea midline Respiratory/Chest: chest non-tender, lungs clear, normal breath sounds, no respiratory distress Cardiovascular: regular rate, rhythm, no gallop, no murmur Abdomen: normal bowel sounds, non tender, soft, no organomegaly Extremities: non-tender, no calf tenderness Neurologic/Psychiatric: alert, oriented x 3 Skin: normal color, warm/dry, no rash Lymphatic: no adenopathy Laboratory Results RUN DATE: 02/07/17 [facility] LAB PAGE 1 RUN TIME: 1052 Specimen Inquiry PATIENT: ANAHY OCAMPO Anita LOC: [facility] U # : [id number] AGE/SX: 66/M ROOM: E412 REG : 02/05/[address]: Gilmer Grubbs M. : 1950 BED: 1 DIS : STATUS: ADM IN TLOC: SPEC #: [id number] BARBARA: 02/05/17 STATUS: COMP REQ #: [id number] RECD: 02/05/[address]: Imer Gilmore M.D. SOURCE: URINE CATH ENTR: 02/05/17-404 [facility] [address]: Gilmer Grubbs M.D. [facility]: ORDERED: CULTURE UR CATH Procedure Result Verified Site URINE CULTURE Final 02/07/17-1052 Organism 1 ESCHERICHIA COLI COLONY COUNT >100,000 CFU/ml SENS SENSITIVITY TO FOLLOW 1. ESCHERICHIA COLI Target Route Dose RX AB Cost M.I.C. IQ ------ ----- ------ -- ------ -------- - ------ TRIMET/SULFA R >2/38 AMPICILLIN S <=8 AMPICILLIN/SUL S <=8/4 CEFAZOLIN S <=8 CEFOTAXIME S <=2 CEFTRIAXONE S <=1 CEFEPIME S <=4 CEFUROXIME S <=4 IMIPENEM S <=1 GENTAMICIN S <=4 TOBRAMYCIN S <=4 AMIKACIN S <=16 CIPROFLOXACIN R >2 LEVOFLOXACIN R >4 ERTAPENEM S <=1 NITROFURANTOIN S <=32 PIP/TAZO S <=16 S = SENSITIVE I = INTERMEDIATE R = RESISTANT END OF REPORT Last 24 Hours Test 02/07/17 07:07 White Blood Count 6.27 K/uL Red Blood Count 4.66 M/uL Hemoglobin 13.5 g/dL Hematocrit 39.1 % Mean Corpuscular Volume 83.9 fL Mean Corpuscular Hemoglobin 29.0 pg Mean Corpuscular Hemoglobin Concent 34.5 g/dl Platelet Count 186 K/uL Mean Platelet Volume 9.9 fL Neutrophils (%) (Auto) 71.9 % Lymphocytes (%) (Auto) 10.7 % Monocytes (%) (Auto) 14.5 % Eosinophils (%) (Auto) 2.4 % Basophils (%) (Auto) 0.2 % Neutrophils # (Auto) 4.51 K/uL Lymphocytes # (Auto) 0.67 K/uL Monocytes # (Auto) 0.91 K/uL Eosinophils # (Auto) 0.15 K/uL Basophils # (Auto) 0.01 K/uL RDW Standard Deviation 41.9 fL RDW Coefficient of Variation 13.8 % Immature Granulocyte % (Auto) 0.3 % Immature Granulocyte # (Auto) 0.02 K/uL Sodium Level 140 mmol/L Potassium Level 4.0 mmol/L Chloride Level 106 mmol/L Carbon Dioxide Level 31 mmol/L Anion Gap 3.0 mmol/L Blood Urea Nitrogen 16 mg/dl Creatinine 1.00 mg/dl Est Creatinine Clear Calc Drug Dose 78.4 ml/min Estimated GFR () 91.1 Estimated GFR (Non- 78.6 BUN/Creatinine Ratio 15.6 Random Glucose 95 mg/dl Calcium Level 8.9 mg/dl Assessment and Plan Quinolone resistant E coli urinary tract infection following hemorrhoidectomy , with what appears to be good clinical response to current IV antibiotics. patient will receive dose of ertapenem tonight, and would consider transition to oral antibiotics tomorrow if remains afebrile and white count improved. Recommend cefdinir 300 milligrams b.i.d. for 4-6 weeks.
--- NOTE | 2017-02-07 23:35 | Progress Note ---
Progress Note Date of Service Feb 07, 2017. Progress Note 66-year-old male admitted through the emergency room with multiple problems including urinary retention, urinary tract infection, he status post surgery for hemorrhoids. His medical history is also significant for arterial hypertension, hypercholesterolemia, osteoarthritis, paroxysmal atrial fibrillation. The patient was admitted. Cultures were done. He was started on IV antibiotics. He was seen in infectious disease consultation by Dr. Kimani Martel, surgical consultation by Dr. Richard, urology by Dr. Don. His urine culture did grow Escherichia coli. It was resistant to Levaquin, ciprofloxacin, and sulfa. He is currently on ertapenem. His condition improved. He has not had any recurrent fever. No chills He denied any headache or dizziness or lightheadedness. Denies any chest pain no shortness of breath. no abdominal pain. No nausea no vomiting. This morning his Cates catheter was removed. He has been able to void. He does have chronic back pain related to his prior vertebral fracture. No ankle edema. EXAMINATION: He is well developed in no distress Vital signs: Blood pressure 117/75, pulse 54, respirations 16, temperature 36.6 , oxygen saturation 94% on room air. Skin is warm and dry. No rash. HEENT: No mucosal abnormalities Neck is supple. Nontender. Heart regular heart sounds no murmur rub or gallop Lungs are clear Abdomen is soft nontender Extremities no edema clubbing or cyanosis LABORATORY TESTS: WBC count 6270, hemoglobin 13.5, hematocrit 39.1, platelet count 186,000. Sodium 140, potassium 4.0, chloride 106, CO2 31, BUN 16, creatinine 1.0, calcium 8.9. ASSESSMENT: * urinary tract infection * Urinary retention * Status post hemorrhoid surgery * Arterial hypertension * Paroxysmal atrial fibrillation PLAN: * continue his medications * Ambulating as tolerated * As noted his Cates catheter was removed and he is voiding. * Anticipate discharge tomorrow. Antibiotic treatment as recommended by Dr. Martel
[2017-02-08] MEDS: HYDROCODONE/ACETAMOPHEN 5/325MG TAB PO PRN (00:09)
[2017-02-08 00:30] VITALS: BP 168/81; PULSE 44; TEMP 36.7; O2SAT 96
[2017-02-08] MEDS: POLYETHYLENE (MIRALAX) 17 GM PACK PO SCH (05:26)
[2017-02-08 07:29] LABS: BASO % 0.4 %; BASO ABS # 0.02 K/uL (0-0.2); COMPLETE YES; EOS % 3.7 %; HEMATOCRIT 37.1 % (42-52); IG% 0.4 %; LYMPH % 16.9 %; LYMPH ABS # 0.87 K/uL (1.2-3.4); MEAN CORPUSCULAR HEMOGLOBIN 28.2 pg (25-34); MEAN PLATELET VOLUME 9.5 fL (7.4-10.4); MONO % 15.7 %; NEUT % 62.9 %; PLATELET COUNT 193 K/uL (130-400); RED BLOOD COUNT 4.47 M/uL (4.7-6.1); WHITE BLOOD COUNT 5.15 K/uL (4.8-10.8)
--- NOTE | 2017-02-08 07:57 | Progress Note ---
Subjective Date of Service: Feb 08, 2017. Subjective Pt evaluation today including: conversation w/ patient, chart review, lab review Voiding: no voiding problems 66 yo male with UR and UTI s/p hemorrhoidectomy. Successful TOV yesterday. The pt reports he is voiding without difficulty. PVRs have been less than 100. He notes some dysuria, but this is improving as well. Denies gross hematuria. Problem List Medical Problems: (1) Burst fracture of lumbar vertebra Status: Acute (2) Lumbar transverse process fracture Status: Acute (3) Prostatitis Status: Acute (4) Sepsis Status: Acute (5) Urinary retention Status: Acute Review of Systems Constitutional: No fever, No chills Respiratory: No shortness of breath Cardiac: No chest pain Abdomen: No pain, No nausea, No vomiting, No constipation Male : + see HPI, + dysuria, No hematuria Heme: No abnormal bleeding/bruising Objective Vital Signs Date Time Temp Pulse Resp B/P (MAP) Pulse Ox O2 Delivery O2 Flow Rate FiO2 02/08/17 00:37 Room Air 02/08/17 00:30 36.7 44 20 168/81 (110) 96 Room Air 02/07/17 20:15 Room Air 02/07/17 19:31 36.6 46 18 118/77 (91) 95 Room Air 02/07/17 16:13 37.0 48 18 127/85 (99) 98 02/07/17 09:50 Room Air Physical Exam General Appearance: no apparent distress Eyes: normal inspection ENT: hearing grossly normal Neck: no JVD Respiratory/Chest: no respiratory distress, no accessory muscle use Cardiovascular: no JVD Extremities: normal inspection Neurologic/Psychiatric: alert, normal mood/affect, oriented x 3 Skin: normal color Laboratory Results Last 24 Hours Test 02/08/17 07:04 White Blood Count 5.15 K/uL Red Blood Count 4.47 M/uL Hemoglobin 12.6 g/dL Hematocrit 37.1 % Mean Corpuscular Volume 83.0 fL Mean Corpuscular Hemoglobin 28.2 pg Mean Corpuscular Hemoglobin Concent 34.0 g/dl Platelet Count 193 K/uL Mean Platelet Volume 9.5 fL Neutrophils (%) (Auto) 62.9 % Lymphocytes (%) (Auto) 16.9 % Monocytes (%) (Auto) 15.7 % Eosinophils (%) (Auto) 3.7 % Basophils (%) (Auto) 0.4 % Neutrophils # (Auto) 3.24 K/uL Lymphocytes # (Auto) 0.87 K/uL Monocytes # (Auto) 0.81 K/uL Eosinophils # (Auto) 0.19 K/uL Basophils # (Auto) 0.02 K/uL RDW Standard Deviation 40.9 fL RDW Coefficient of Variation 13.5 % Immature Granulocyte % (Auto) 0.4 % Immature Granulocyte # (Auto) 0.02 K/uL Assessment and Plan A/P: Urinary retention and UTI Pt clinically improving. Acceptable PVRs. Continue Rapaflo. Management of UTI/probable prostatitis per Dr. Martel. Agree with plan for cefdinir. Will arrange for outpatient f/u with Dr. Ferrara next week. No further management at this time. Recall PRN issues. Thank you for allowing us to participate in this pt's care. Continued [facility] stay due to: fever, voiding difficulties, multiple IV medications needed
[2017-02-08] MEDS ORDERED: CEFD300C2 PO (08:04)
--- NOTE | 2017-02-08 08:07 | Discharge Instructions ---
Discharge Instructions Date of Service Feb 08, 2017. Admission Reason for Admission: Urinary tract infection Urinary retention Post hemorrhoid surgery Arterial hypertension Paroxysmal atrial fibrillation Discharge Discharge Diagnosis / Problem: urinary tract infection. Urinary retention. Post hemorrhoid surgery. Discharge Goals Goal(s): Decrease discomfort, Improve disease control Activity Recommendations Activity Limitations: resume your previous activity . Instructions / Follow-Up Instructions / Follow-Up Dr. Kimani Martel. Please call for an appointment Dr. Robbin Don. Please call for an appointment Dr. Meléndez. Please call for an appointment Current Hospital Diet Patient's current hospital diet: Regular Diet Discharge Diet Recommended Diet: Regular Diet Pending Studies Studies pending at discharge: no Medical Emergencies . Who to Call and When: Medical Emergencies: If at any time you feel your situation is an emergency, please call 911 immediately. . Non-Emergent Contact Non-Emergency issues call your: Primary Care Provider . . "Provider Documentation" section prepared by Gilmer Mejia. . VTE Core Measure Inpt VTE Proph given/why not?: Treatment not indicated
[2017-02-08 08:14] VITALS: BP 168/81; PULSE 44; TEMP 36.7; O2SAT 96
[2017-02-08 08:14] LABS: BUN/CREATININE RATIO 15.7 (10-20); CALCIUM 9.1 mg/dl (8.5-10.1); CREATININE 0.94 mg/dl (0.60-1.40); POTASSIUM 4.1 mmol/L (3.5-5.1)
[2017-02-08] MEDS: OMEGA-3 (PURIFIED FISH OIL) 1 GM CAP PO SCH (08:26)
[2017-02-08] MEDS: ASPIRIN 81 MG CHEW PO SCH (08:27)
[2017-02-08] MEDS: CALCIUM 600MG + VIT D 400 IU TAB PO SCH (08:27)
[2017-02-08] MEDS: PANTOprazole SOD 40 MG TAB PO SCH (08:27)
[2017-02-08] MEDS: CHOLECALCIFEROL 1000 INTER.UNIT TAB PO SCH (08:27)
[2017-02-08] MEDS: NEBIVOLOL HCL 5 MG TAB PO SCH (08:28)
[2017-02-08] MEDS: SILODOSIN 8 MG CAP PO SCH (08:28)
--- NOTE | 2017-02-08 19:32 | Progress Note ---
Progress Note Date of Service Feb 08, 2017. Progress Note 66-year-old male admitted with * urinary retention * Urinary tract infection * Status post hemorrhoid surgery * Arterial hypertension * Paroxysmal atrial fibrillation * Hyperlipidemia Patient was admitted. Cultures were done. He was started on IV antibiotics. He was seen by multiple consultants including Dr. Kimani Martel in infectious disease, Dr. Robbin Don in urology and Dr. Richard in surgery. Dr. Martel changed his antibiotic ertapenem. There was no indication for any surgical intervention. He had a Cates catheter placed in the emergency room. His condition improved. He did not have any recurrent fever. He was ambulated. He had multiple bowel movements. Eventually his Cates catheter was removed yesterday. He has been able to void without any problem. His urine culture did grow Escherichia coli. It was resistant to sulfa and quinolones. It was sensitive to ertapenem. Today: * He is doing quite well without any complaints * Vital signs blood pressure 168/81, pulse 44, respiration 20, temperature 36.7 , oxygen saturation 96% on room air. * Today's laboratory tests showed a WBC count of 5150, hemoglobin 12.6, hematocrit 37.1, platelet count one 93,000. Sodium 140, potassium 4.1, chloride 104, CO2 31, BUN 15, creatinine 0.94, glucose 78, potassium 9.1. * He was discharged home today. Dr. Martel recommended treatment with Omnicef 300 mg twice a day for 4-6 weeks. I did write a prescription for 30 days. * Followup with Dr. Martel * Followup with Dr. Don * Followup with the surgeon who did his hemorrhoid surgery at [facility]
--- NOTE | 2017-02-19 21:36 | Discharge Summary ---
Discharge Summary Date of Service Feb 19, 2017. Discharge Summary ADMISSION DATE: 02/05/2017 DISCHARGE DATE: 02/08/2017 DISCHARGE DIAGNOSES: * urinary tract infection * Urinary retention * Post hemorrhoid surgery * Arterial hypertension * Paroxysmal atrial fibrillation DISCHARGE MEDICATIONS: * Omnicef 300 mg twice a day for 30 days * Aspirin 162 mg daily * Calcium with vitamin D 2 tablets daily * Vitamin D 3 2000 international unit daily * Citalopram 20 mg daily * Fish oil omega-3 1000 mg daily * Ibuprofen 200 mg tablets as needed * Prevacid 30 mg daily * Lorazepam 0.5 mg 3 times a day as needed * Multivitamin one daily * Bystolic 10 mg daily * Rapaflo 8 mg daily CONSULTATIONS: * Dr. Robbin Don in neurology * Dr. Kimani Martel in infectious disease * Dr. Sohail Richard in Gen. surgery 66-year-old male admitted through the emergency room with urinary retention, urinary tract infection, suspected prostatitis, he is status post hemorrhoid surgery 2 days prior to his admission. Patient had hemorrhoid surgery at [facility]. The procedure was well tolerated. He was still using sitz bath. He has not had a bowel movement. He started having problems urinating. The problem progressed. He was having significant discomfort. He was not able to void. He came to the emergency room. He was in urinary retention. Cates catheter was placed. 500 cc of urine drained. Urinalysis showed evidence of urinary tract infection. In the emergency room he received one dose of Zosyn and one dose of daptomycin. I saw the patient in the emergency room and he was admitted for further treatment. PAST MEDICAL HISTORY, SOCIAL HISTORY, FAMILY HISTORY: As noted on admission history and physical ALLERGIES:clindamycin, vancomycin. ADMISSION MEDICATIONS: As noted on the home medication list PHYSICAL EXAMINATION AND LABORATORY TESTS ARE NOTED ON ADMISSION HITORY AND PHYSICAL HOSPITAL COURSE: patient was admitted to a medical bed. Resuscitation level I. All his laboratory tests were ordered. He was switched to ciprofloxacin 400 mg IV every 12 hours. urology consultation was requested. He was also seen in surgical consultation by Dr. Richard. He was having recurrent fever. I did change his antibiotic back Zosyn and metronidazole was added. the metronidazole was recommended by the surgeon who performed his hemorrhoid surgery.subsequently he was seen in infectious disease consultation. Dr. Martel decided to change his antibiotic to ertapenem. his blood cultures were negative. His urine culture did grow Escherichia coli. It was resistant to ciprofloxacin, levofloxacin, and Septra. It was sensitive to Ertapenem. He became febrile. His appetite started to improve. On 02/07/2017 his Cates catheter was removed. He was able to urinate on his own. Patient was discharged home. He was to followup in urology, surgery, and infectious disease. He was also to followup with Dr. Meléndez who did his hemorrhoid surgery.
== END 2017-02-08 08:15 | disposition home or self-care (01) | DRG 690 ==
LOC: C.EDB 03:09 → C.4E 05:53 → EEVIPCON 05:53 → ENRESERV 06:08
PROVIDERS: ADMIT Internal Medicine; ATTEND Internal Medicine
PROC: 0T9B70Z Drainage of Bladder with Drainage Device, Via Natural or Artificial Opening (ICD-10-PCS; principal; 2017-02-05)
DX: N39.0 Urinary tract infection, site not specified (principal); N41.0 Acute prostatitis; B96.20 Unspecified Escherichia coli [E. coli] as the cause of diseases classified elsewhere; Z16.23 Resistance to quinolones and fluoroquinolones; Z16.29 Resistance to other single specified antibiotic; R33.9 Retention of urine, unspecified; N40.1 Benign prostatic hyperplasia with lower urinary tract symptoms; Z98.890 Other specified postprocedural states; K59.00 Constipation, unspecified; I10 Essential (primary) hypertension; I48.0 Paroxysmal atrial fibrillation; E78.00 Pure hypercholesterolemia, unspecified; K21.9 Gastro-esophageal reflux disease without esophagitis; M19.90 Unspecified osteoarthritis, unspecified site; Z87.81 Personal history of (healed) traumatic fracture; Z96.652 Presence of left artificial knee joint; Z79.82 Long term (current) use of aspirin; Z79.899 Other long term (current) drug therapy; Z88.0 Allergy status to penicillin; Z88.1 Allergy status to other antibiotic agents; Z82.49 Family history of ischemic heart disease and other diseases of the circulatory system; Z80.1 Family history of malignant neoplasm of trachea, bronchus and lung

== ENCOUNTER → 2017-10-07 | Outpatient (CLI) | payer OTHER ==
[~2017-10-07] MED LIST changes: -CHOL100010 PO; +CHOL2000 PO; +CITA20TA4 PO; -FISHOIL PO; +OMEG10007 PO; -TRAM-10 PO
[2017-10-07 13:20] LABS: BASO % 0.2 %; BASO ABS # 0.01 K/uL (0-0.2); EOS % 1.5 %; EOS ABS # 0.08 K/uL (0-0.5); HEMATOCRIT 41.1 % (42-52); HEMOGLOBIN 15.2 g/dL (14.0-18.0); IG# 0.01 K/uL (0.00-0.02); LYMPH % 23.7 %; LYMPH ABS # 1.26 K/uL (1.2-3.4); MEAN CELL VOLUME 80.9 fL (80-100); MEAN CORPUSCULAR HEMOGLOBIN 29.9 pg (25-34); MEAN PLATELET VOLUME 9.9 fL (7.4-10.4); MONO ABS # 0.53 K/uL (0.11-0.59); NEUT % 64.4 %; NEUT ABS # 3.43 K/uL (1.4-6.5); PLATELET COUNT 205 K/uL (130-400); RED CELL DISTRIBUTION WIDTH CV 13.5 % (11.5-14.5); RED CELL DISTRIBUTION WIDTH SD 39.9 fL (36.4-46.3); WHITE BLOOD COUNT 5.32 K/uL (4.8-10.8)
[2017-10-07 13:59] LABS: ALBUMIN 3.5 gm/dl (3.4-5.0); ALKALINE PHOSPHATASE 75 U/L (45-117); ALT/SGPT 27 U/L (12-78); AST/SGOT 23 U/L (15-37); BLOOD UREA NITROGEN 16 mg/dl (7-18); CALCIUM 8.7 mg/dl (8.5-10.1); CARBON DIOXIDE 29 mmol/L (21-32); CHOLESTEROL 122 mg/dl (0-200); GLUCOSE 80 mg/dl (70-99); LDL CHOLESTEROL (DIRECT) 84 mg/dl; POTASSIUM 3.9 mmol/L (3.5-5.1); SODIUM 139 mmol/L (136-145); TOTAL PROTEIN 6.3 gm/dl (6.4-8.2)
== END | disposition home or self-care (01) ==
LOC: C.LAB 12:22
PROVIDERS: ATTEND Internal Medicine
DX: Z00.00 Encounter for general adult medical examination without abnormal findings (principal); R30.0 Dysuria; I10 Essential (primary) hypertension; E78.5 Hyperlipidemia, unspecified

== ENCOUNTER 2022-05-05 13:53 | Observation (INO) ==
[2022-05-05] MEDS ORDERED: SODIUM CHLORIDE 0.9% 1000ML 1,000 ML IV ONE (14:32)
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
[2022-05-05 15:04] LABS: Basophils # (auto) 0.03 K/uL (0-0.2); Basophils % (auto) 0.4 %; Eosinophils # (auto) 0.03 K/uL (0-0.50); Eosinophils % (auto) 0.4 %; Hematocrit (blood only) 42.1 % (40.1-51.0); Immature Granulocytes # (auto) 0.03 K/uL (0.00-0.02); Immature Granulocytes % (auto) 0.4 %; Lymphocytes # (auto) 1.06 K/uL (1.2-3.4); Lymphocytes % (auto) 14.5 %; Mean Corpuscular Hemoglobin 30.6 pg (25.0-34.0); Mean Corpuscular Hgb Conc 35.6 g/dL (32.0-36.0); Mean Corpuscular Volume 85.9 fL (80.0-100.0); Mean Platelet Volume 9.8 fL (9.4-12.4); Monocytes # (auto) 0.56 K/uL (0.24-0.82); Monocytes % (auto) 7.7 %; Neutrophils # (auto) 5.61 K/uL (1.4-6.5); Neutrophils % (auto) 76.6 %; Platelet Count 276 K/uL (130-400); RDW Coefficient of Variation 13.2 % (11.5-14.5); RDW Standard Deviation 40.6 fL (36.4-46.3); White Blood Count 7.32 K/ul (4.8-10.8)
--- NOTE | 2022-05-05 15:04 | XRay Report ---
SINGLE VIEW CHEST CLINICAL HISTORY: Syncope. FINDINGS: An AP, portable, upright chest radiograph is compared to study dated 01/10/2021 and correlat ed with chest CT dated 05/19/2009. The heart is enlarged. There is mild pulmonary vascular congestion . The lungs and pleural spaces are clear noting bibasilar atelectasis. No large pleural effusion or p neumothorax is seen. The skeletal structures are osteopenic. The bony thorax is grossly intact. A rig ht shoulder arthroplasty is in place. IMPRESSION: Cardiomegaly with mild pulmonary vascular congestion. ACT 112: Negative or not required by law. Electronically signed by: Omi Chilel M.D. 05/05/2022 3:02 PM
[2022-05-05 15:33] LABS: Albumin Globulin Ratio 1.9 (0.9-2); Albumin Level 4.2 gm/dl (3.4-5.0); BUN Creatinine Ratio 18.4 (10-20); Bilirubin,Total 1.3 mg/dl (0.2-1.0); Calcium 9.6 mg/dl (8.5-10.1); Creatinine Clr Calc Pharmacy 72.4 ml/min; Est GFR (African American) 90.2 ml/min; Est GFR (Non-African American) 77.8 ml/min; Globulin 2.2 gm/dl (2.5-4.0); Magnesium 1.8 mg/dl (1.7-2.4); Phosphorus 1.6 mg/dl (2.5-4.9); Potassium 3.8 mmol/L (3.5-5.1); Total Protein 6.4 gm/dl (6.0-8.3); Troponin I High Sensitivity 5.5 pg/ml (0-20)
[2022-05-05 15:45] LABS: Appearance Urine Clear (Clear); Bilirubin Urine Negative (Negative); Blood Urine Negative (Negative); Color Urine Yellow; Glucose Urine UA Negative (Negative); Ketones Urine Negative (Negative); Leukocyte Esterase Urine Negative (Negative); Nitrite Urine Negative (Negative); Protein Urine Negative (Negative); Specific Gravity Urine 1.007 (1.000-1.030); Urobilinogen Urine Negative (Negative)
[2022-05-05] MEDS ORDERED: MAGNESIUM SULFATE / D5W 1 GM/100 ML BAG IV STA (16:04)
[2022-05-05] MEDS ORDERED: POT PHOSPHATE MONOBASIC W/ SOD TAB PO STA (16:04)
[2022-05-05] MEDS ORDERED: POTASSIUM PHOS 3 MMOL/1 ML INFUSION IV STA (16:04)
[2022-05-05] MEDS ORDERED: POTASSIUM PHOSPHATE 6 MMOL in 0.9 % SODIUM CHLORIDE 100 ML IV ONE (16:15)
--- NOTE | 2022-05-05 16:25 | Electrocardiogram Report ---
Test Reason : Blood Pressure : / mmHG Vent. Rate : 095 BPM Atrial Rate : 104 BPM P-R Int : 000 ms QRS Dur : 088 ms QT Int : 344 ms P-R-T Axes : 000 -29 028 degrees QTc Int : 432 ms Poor data quality, interpretation may be adversely affected Atrial fibrillation Abnormal ECG When compared with ECG of 10-JAN-2021 17:29, No significant change was found Confirmed by Blayne Mcknight ([id number]) on 05/05/2022 4:24:54 PM Referred By: REFERRED SELF Confirmed By:Blayne Mcknight
[2022-05-05] MEDS ORDERED: LORazepam 1 MG TAB SL STA (17:05)
[2022-05-05] MEDS ORDERED: ZOLPIDEM TARTRATE 10 MG TAB PO PRN (17:41)
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
[2022-05-05] MEDS: GABAPENTIN 300 MG CAP PO SCH (21:36)
[2022-05-05] MEDS: APIXABAN 5 MG TABLET PO SCH (21:37)
[2022-05-06] MEDS ORDERED: LORazepam 1 MG TAB PO STA (02:57)
[2022-05-06 07:53] LABS: Hematocrit (blood only) 37.5 % (40.1-51.0); Hemoglobin 13.5 g/dl (14.0-18.0); Mean Corpuscular Hemoglobin 30.8 pg (25.0-34.0); Mean Corpuscular Volume 85.4 fL (80.0-100.0); Mean Platelet Volume 9.8 fL (9.4-12.4); Platelet Count 225 K/uL (130-400); RDW Coefficient of Variation 13.4 % (11.5-14.5); RDW Standard Deviation 41.8 fL (36.4-46.3); Red Blood Count 4.39 M/uL (4.63-6.08); White Blood Count 4.84 K/ul (4.8-10.8)
[2022-05-06 08:21] LABS: Alanine Aminotransferase 17 U/L (7-52); Albumin Level 3.7 gm/dl (3.4-5.0); Alkaline Phosphatase 62 U/L (34-104); Anion Gap 5 (3-11); Aspartate Aminotransferase 18 U/L (13-39); BUN Creatinine Ratio 20.9 (10-20); Bilirubin Direct 0.1 mg/dl (0-0.2); Bilirubin,Total 0.9 mg/dl (0.2-1.0); Blood Urea Nitrogen 19 mg/dl (6-23); C Reactive Protein < 0.50 mg/dl (0-0.5); Calcium 8.8 mg/dl (8.5-10.1); Carbon Dioxide 26 mmol/L (21-32); Chloride 109 mmol/L (98-107); Est GFR (African American) 98.6 ml/min; Est GFR (Non-African American) 85.1 ml/min; Glucose 87 mg/dl (70-99(Fasting)); Magnesium 2.1 mg/dl (1.7-2.4); Phosphorus 3.5 mg/dl (2.5-4.9); Potassium 3.9 mmol/L (3.5-5.1); Sodium 140 mmol/L (136-145); Total Protein 5.6 gm/dl (6.0-8.3)
--- NOTE | 2022-05-06 08:42 | Electrocardiogram Report ---
Test Reason : Blood Pressure : / mmHG Vent. Rate : 060 BPM Atrial Rate : 060 BPM P-R Int : 172 ms QRS Dur : 102 ms QT Int : 424 ms P-R-T Axes : 042 -09 030 degrees QTc Int : 424 ms Normal sinus rhythm Normal ECG When compared with ECG of 05-MAY-2022 14:00, Sinus rhythm has replaced Atrial fibrillation Vent. rate has decreased BY 35 BPM Confirmed by Blayne Mcknight ([id number]) on 05/06/2022 8:41:46 AM Referred By: REFERRED SELF Confirmed By:Blayne Mcknight
--- NOTE | 2022-05-06 08:57 | Communication Note ---
Date of Service: May 06, 2022 By CMS guidelines, a determination that the admission or continued stay is not medically necessary has been made by a member of the UR committee and a ph ysician for this hospital stay, therefore a Code 44 will be completed and the Inpatient admission will be changed to outpatient.
[2022-05-06] MEDS ORDERED: ROSUVASTATIN CALCIUM 5 MG TAB PO SCH (09:00)
[2022-05-06] MEDS ORDERED: MULTIVITAMIN TAB PO SCH (09:00)
[2022-05-06] MEDS ORDERED: LOSARTAN/HCTZ 50/12.5MG TAB PO SCH (09:00)
[2022-05-06] MEDS ORDERED: METOPROLOL TARTRATE 25 MG TAB PO SCH (09:00)
[2022-05-06] MEDS ORDERED: NON-FORMULARY MEDICATION (Nebivolol [Bystolic] 10 mg tablet) PO SCH (09:00)
[2022-05-06] MEDS ORDERED: FAMOTIDINE 20 MG TAB PO SCH (09:00)
[2022-05-06] MEDS: APIXABAN 5 MG TABLET PO SCH (09:05)
[2022-05-06] MEDS: FLECAINIDE ACETATE 100 MG TABLET PO SCH ×2 (09:05→10:00)
[2022-05-06] MEDS: GABAPENTIN 300 MG CAP PO SCH (09:06)
--- NOTE | 2022-05-06 09:34 | Communication Note ---
Date of Service: May 06, 2022 By CMS guidelines, a determination that the admission or continued stay is not medically necessary has been made by a member of the UR committee and amy beebe for this hospital stay, therefore a Code 44 will be completed and the Inpatient admission will be changed to outpatient. Xenia West M.D.
--- NOTE | 2022-05-06 09:55 | Discharge Summary ---
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 Patient arrived to the hospital because of palpitations accompanied by paresthesias of all of his extremities, SOB, and lightheadedness. Patient reports he felt that he was going to and laid on the ground in case CPR was needed when EMT services would arrive. Thankfully, no CPR was required. Prior to this episode, he had an epidural injection scheduled today, but this was cancelled due to his palpitations. Patient reports that he had the chills but this was mainly due to him being wihtout a blanket when the EMT brought him into the ambulance. His Atrial fibrillation broke and he was back in sinus osiris. Admission called as he had hypophosphatemia and hypomagnesemia. Patient did have a 3 beat run of VT prior to arrival. Principal Diagnosis atrial fibrillation Discharge Exam Constitutional WD/WN, vitals as above Neck normal visual inspection Respiratory normal respiratory effort, lungs clear to auscultation normal respiratory effort Cardiovascular RRR, no murmur, no edema (bradycardic) bradycardic on heart monitor Gastrointestinal (Abdomen) normal bowel sounds, soft, nontender, no hepatosplenomegaly Musculoskeletal no cyanosis or clubbing, extremities motor strength 5/5 Skin no rashes, warm and dry Neurologic awake Psychiatric A+Ox3, euthymic affect Lymphatic no cervical or axillary lymphadenopathy Discharge Data Allergies Allergy/AdvReac Type Severity Reaction Status Date / Time adhesive tape Allergy Mild Rash (no Verified 05/07/22 11:44 issue with paper tape) vancomycin Allergy Mild Rash Verified 05/07/22 11:44 celecoxib [From Celebrex] AdvReac Intermediate Rash Verified 05/07/22 11:44 Consultations 05/05/22 17:08 ED Decision to Admit Stat 05/05/22 17:44 Consult Cardiology Routine Hospital Course (1) Atrial fibrillation: Patient with A. fib RVR prior to admission. Patient improved and is now bradycardic. Hypophosphatemia can lead to arrythmias, perhpas this played a role with his RVR. It also appears that his flecanide was recently decreased (by patient) to once daily. monitored overnight. Appreciate input from Cardiology. Patient discharged on flecainide BID. discontinue bystolic. (2) Hypophosphatemia: No previous level. This has been replanished. (3) Occipital neuralgia: resolved prior to hospital stay. (4) Near syncope: secondary to problem 1. as above. Total Time Total Time Spent Total Time Spent (In Minutes): 32 Discharge Plan Discharge Items Patient Disposition: Home - Self-Care Reason For Visit: CARDIAC ASESSMENT Discharge Diagnosis: cardiac assessment Activity: Resume your previous activity Non-emergency contact: Primary Care Provider Call non-emergency contact if: you have any medication questions Follow-up/Referrals: Dora Simms PA-C [Physician Manager Telemetry] - 05/12/22 10:30 am Diet: Regular Addtl Attending Provider Instructions: You have been hospitalized for an acute medical problem. During your stay at [facility], we have made an effort to correct the problem that brought you to the hospital while keeping you as comfortable as possible. Medications were used to bring your condition under control and your discharge instructions will include directions for any medications you should take after leaving the hospital. Please make sure you see your Primary Care Provider as part of your follow up plan. Followup with your PCP in 1-2 weeks. Recheck your bmp, phos and mag in 1 week. Pending Studies at Discharge: No Stand-Alone Forms: My [facility], Smoking Cessation Medications and DC Order Prescriptions: Continued sildenafil (pulm.hypertension) 20 mg tablet 20 mg PO DAILY PRN (Reason: sexual activity) Qty: 30 6RF Hold Instructions: while on paxlovid Rx Instructions: administer doses at least 4-6 hours apart, max 100mg/day rosuvastatin [Crestor] 5 mg tablet 5 mg PO DAILY Qty: 90 3RF gabapentin 300 mg capsule 300 mg PO BID Qty: 180 1RF losartan-hydrochlorothiazide 50-12.5 mg tablet 1 tab PO DAILY cholecalciferol (vitamin D3) 50 mcg (2,000 unit) capsule 50 mcg PO DAILY Eliquis 5 mg tablet 5 mg PO QAM Rx Instructions: Patient only taking daily zolpidem 10 mg tablet 10 mg PO HS PRN (Reason: Insomnia) Qty: 30 0RF silodosin 8 mg capsule 8 mg PO QAM Qty: 90 3RF Rx Instructions: must administer with a meal/food famotidine [Pepcid AC] 10 mg tablet 20 mg PO QAM multivitamin Tablet 1 tab PO QAM Changed flecainide 50 mg tablet 50 mg PO BID Qty: 60 0RF Discontinued Bystolic 10 mg tablet 5 mg PO QAM No Action lorazepam 0.5 mg tablet 0.5 mg PO DAILY PRN (Reason: anxiety/panic) Qty: 10 0RF Discharge Orders: Discharge Order (Routine); Ordered 05/06/22 Ordered By: Memo Bradley Admission Data Admit Date/Time: 05/05/22 20:28 Attending Provider: Memo Bradley Admit Provider: Memo Bradley Primary Care Provider: Debi Garnica Other Providers: Memo Bradley ; Kris Valdes ; Blayne Mcknight ; Moo Martinez ; Otilio Desai ; Robbin Buckley ; Evan Cordero Jr ; Estuardo Sawyer ; Caroline Thomas ; Annemarie Ragsdale ; Juarez Montague ; Rojas Craven ; Ector Hu ; Anuja Bianchi ; Kiersten Freire ; Soham Lagunas ; Blair Thompson ; Kenneth London ; Otilio Jameson V. Other Interventions: Discharge Summary Assessment (RN) Last Done: 05/06/22 10:04 Coding Level of Care Code D/C DAY MANAGEMENT >30 MINS Diagnoses Atrial fibrillation I48.91 Hypophosphatemia E83.39 Occipital neuralgia M54.81 Near syncope R55
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
== END 2022-05-06 10:55 | disposition home or self-care (01) | DRG 310 ==
LOC: ED 13:53 → 2S 19:54 → INTOOBSV 20:28
DX: D47.2 Monoclonal gammopathy; E83.39 Other disorders of phosphorus metabolism; K21.9 Gastro-esophageal reflux disease without esophagitis; Z96.611 Presence of right artificial shoulder joint; Z83.3 Family history of diabetes mellitus; I48.0 Paroxysmal atrial fibrillation; Z96.652 Presence of left artificial knee joint; N40.0 Benign prostatic hyperplasia without lower urinary tract symptoms; M54.81 Occipital neuralgia; I10 Essential (primary) hypertension; E78.5 Hyperlipidemia, unspecified; M54.10 Radiculopathy, site unspecified; Z88.1 Allergy status to other antibiotic agents; Z96.641 Presence of right artificial hip joint

== ENCOUNTER 2024-01-27 16:31 | Inpatient (IN) ==
[2024-01-27] MEDS: ACETAMINOPHEN 1,000 MG/100 ML VIAL IV STA (17:00)
[2024-01-27] MEDS: fentaNYL citrate PF 100 MCG/2 ML VIAL IV PRN (17:04)
--- NOTE | 2024-01-27 17:11 | XRay Report ---
SINGLE VIEW CHEST CLINICAL HISTORY: Trauma. FINDINGS: 2 AP, portable, upright chest radiographs are compared to study dated 05/05/2022 and correl ated with chest CT dated 05/19/2009. The cardiac silhouette appears enlarged. The pulmonary vasculatu re is noncongested. Chronic interstitial thickening is similar to previous. There is mild bibasilar s carring/atelectasis. No airspace consolidation or large pleural effusion is identified. No pneumothor ax is seen. The skeletal structures are osteopenic. The bony thorax is grossly intact. A right should er arthroplasty is in place. IMPRESSION: No acute cardiopulmonary abnormality is identified. ACT 112: Negative or not required by law. Electronically signed by: Omi Chilel M.D. 01/27/2024 5:09 PM
[2024-01-27 17:28] LABS: Basophils # (auto) 0.05 K/uL (0.00-0.20); Basophils % (auto) 0.4 %; Eosinophils # (auto) 0.12 K/uL (0.00-0.50); Eosinophils % (auto) 1.1 %; Hematocrit (blood only) 39.3 % (42.0-52.0); Hemoglobin 13.9 g/dl (14.0-18.0); Immature Granulocytes # (auto) 0.07 K/uL (0.01-0.20); Immature Granulocytes % (auto) 0.6 %; Lymphocytes # (auto) 3.13 K/uL (1.20-3.40); Lymphocytes % (auto) 28.1 %; Mean Corpuscular Hemoglobin 27.5 pg (25.0-34.0); Mean Corpuscular Hgb Conc 35.4 g/dL (32.0-36.0); Mean Corpuscular Volume 77.8 fL (80.0-100.0); Mean Platelet Volume 9.6 fL (9.4-12.4); Monocytes # (auto) 0.72 K/uL (0.11-0.59); Monocytes % (auto) 6.5 %; Neutrophils # (auto) 7.05 K/uL (1.40-6.50); Neutrophils % (auto) 63.3 %; Platelet Count 322 K/uL (130-400); RDW Coefficient of Variation 15.7 % (11.5-14.5); RDW Standard Deviation 44.2 fL (36.4-46.3); Red Blood Count 5.05 M/uL (4.70-6.10); White Blood Count 11.14 K/ul (4.8-10.8)
--- NOTE | 2024-01-27 17:32 | XRay Report ---
LEFT HIP 2 VIEWS CLINICAL HISTORY: Trauma. Left hip injury. FINDINGS: AP and frog-leg views of the left hip are correlated with pelvic x-ray dated 12/26/2023. The skeletal structures are osteopenic. There is an impacted subcapital fracture of the left proximal fem ur with overlying soft tissue edema. The visualized left hemipelvis appears intact. Mild arthritic ch asia is noted in the left hip. IMPRESSION: Impacted subcapital fracture of the left proximal femur. Electronically signed by: Omi Chilel M.D. 01/27/2024 5:30 PM
[2024-01-27 17:35] LABS: Albumin Globulin Ratio 2.3 (0.9-2); Albumin Level 4.3 gm/dl (3.4-5.0); BUN Creatinine Ratio 21.8 (10-20); Bilirubin,Total 0.7 mg/dl (0.2-1.0); Calcium 9.7 mg/dl (8.6-10.3); Creatinine Clr Calc Pharmacy 62.7 ml/min; Est GFR (African American) 77.3 ml/min; Est GFR (Non-African American) 66.7 ml/min; Globulin 1.9 gm/dl (2.5-4.0); Potassium 4.1 mmol/L (3.5-5.1); Total Protein 6.2 gm/dl (6.0-8.3)
[2024-01-27 17:41] LABS: Troponin I High Sensitivity 7.1 pg/ml (0-20)
[2024-01-27 17:47] LABS: Prothrombin Time 10.8 Seconds (9.0-12.0)
[2024-01-27] MEDS: ONDANSETRON INJ 2 MG/ML 2 ML VIAL IV STA (18:58)
[2024-01-27] MEDS: MoRPHine SULFATE 4 MG/ML 1 ML CARP\\VIAL IV STA (18:58)
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
[2024-01-27] MEDS: OPTIRAY 320 100ml IV ONE (20:12)
[2024-01-27] MEDS: SODIUM CHLORIDE 0.9% 1,000 ML IV SCH (20:40)
[2024-01-27] MEDS ORDERED: MoRPHine SULFATE 4 MG/ML 1 ML CARP\\VIAL IV PRN (20:41)
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
[2024-01-27] MEDS: MIRTAZAPINE TAB 15 MG TAB PO ONE (22:02)
[2024-01-27] MEDS: METOPROLOL SUCC 25MG EXT REL TAB PO STA (22:02)
[2024-01-27] MEDS ORDERED: bisacodyL 10 MG SUPP PR PRN (22:30)
[2024-01-27] MEDS ORDERED: NALOXONE HCL 0.4 MG/1 ML VIAL/CARP IV PRN (22:30)
[2024-01-27] MEDS ORDERED: MoRPHine SULFATE 2 MG/ML CARP IV PRN (22:30)
[2024-01-27] MEDS ORDERED: MAGNESIUM HYDROXIDE SUSP 30 ML UDC PO PRN (22:30)
[2024-01-27] MEDS ORDERED: ACETAMINOPHEN 325 MG TAB PO PRN (22:30)
[2024-01-27] MEDS: FLECAINIDE ACETATE 100 MG TABLET PO STA (22:32)
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
[2024-01-27] MEDS: LACTATED RINGER'S 1,000 ML IV SCH (22:38)
[2024-01-27] MEDS: MoRPHine SULFATE 4 MG/ML 1 ML CARP\\VIAL IV PRN (22:58)
[2024-01-27 23:12] LABS: Appearance Urine Clear (Clear); Bilirubin Urine Negative (Negative); Blood Urine Negative (Negative); Color Urine Yellow; Glucose Urine UA Negative (Negative); Ketones Urine Negative (Negative); Leukocyte Esterase Urine Negative (Negative); Nitrite Urine Negative (Negative); Protein Urine Negative (Negative); Specific Gravity Urine 1.044 (1.000-1.030); Urobilinogen Urine Negative (Negative); pH Urine 5.5 (4.5-7.5)
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
[2024-01-28 06:34] LABS: Hematocrit (blood only) 35.6 % (42.0-52.0); Hemoglobin 12.4 g/dl (14.0-18.0); Mean Corpuscular Hemoglobin 27.4 pg (25.0-34.0); Mean Corpuscular Hgb Conc 34.8 g/dL (32.0-36.0); Mean Corpuscular Volume 78.6 fL (80.0-100.0); Mean Platelet Volume 9.5 fL (9.4-12.4); Platelet Count 231 K/uL (130-400); RDW Coefficient of Variation 15.6 % (11.5-14.5); RDW Standard Deviation 44.5 fL (36.4-46.3); Red Blood Count 4.53 M/uL (4.70-6.10); White Blood Count 6.39 K/ul (4.8-10.8)
[2024-01-28] MEDS ORDERED: ONDANSETRON INJ 2 MG/ML 2 ML VIAL IV PRN ×3 (07:12→14:48)
[2024-01-28] MEDS ORDERED: ePHEDrine sulfate 50 MG/ML AMP IV PRN (07:12)
[2024-01-28] MEDS ORDERED: ATROPINE SULFATE 0.1 MG/ML 10ML SYR IV PRN (07:12)
--- NOTE | 2024-01-28 07:12 | Anesthesiology Consultation ---
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 Surgery Operation Date: 01/28/24 09:30 Proposed Procedures p ORIF Hip Cannulated Screw(Left) - Otilio Pinto MD s Left Cannulated Screw vs Left Total Hip Arthroplasty(Left) - Otilio Pinto MD Height/Weight Height: 5 ft 10 in Weight: 80.5 kg Allergies Allergy/AdvReac Type Severity Reaction Status Date / Time adhesive tape Allergy Mild Rash (no Verified 01/18/24 13:00 issue with paper tape) vancomycin Allergy Mild Rash Verified 01/18/24 13:00 celecoxib Allergy Unknown Unknown Verified 01/27/24 22:32 Medications Home Medications Medication Instructions Recorded Confirmed Last Taken multivitamin 1 tab PO QAM 05/13/20 01/27/24 10/17/23 cholecalciferol (vitamin D3) 50 50 mcg PO DAILY 01/26/22 01/18/24 10/11/23 mcg (2,000 unit) capsule fluocinonide 0.05 % topical cream 1 applic topical BID PRN Itching 08/23/22 01/18/24 09/27/23 rosuvastatin 5 mg tablet (Crestor) 5 mg PO DAILY #90 tabs 03/09/23 01/27/24 10/16/23 flecainide 100 mg tablet 50 mg PO BID 09/07/23 01/27/24 10/17/23 tramadol 50 mg tablet 50 mg PO Q8H PRN pain #30 tabs 09/20/23 01/18/24 10/17/23 famotidine 20 mg tablet 20 mg PO DAILY 10/18/23 01/27/24 10/17/23 metoprolol succinate 25 mg 25 mg PO BID #180 tabs 11/06/23 01/27/24 Unknown tablet,extended release 24 hr apixaban 5 mg tablet (Eliquis) 5 mg PO BID #180 tabs 11/08/23 01/27/24 Unknown zolpidem 10 mg tablet 10 mg PO HS PRN Insomnia #30 tabs 01/17/24 01/18/24 Unknown silodosin 8 mg capsule 8 mg PO DAILY #90 caps 01/18/24 01/27/24 Unknown Active Medications Generic Name Dose Route Start Last Admin Trade Name Freq PRN Reason Stop Dose Admin Lactated Ringer's 1,000 mls @ 100 mls/hr 01/28/24 00:00 01/27/24 22:38 Lr IV 01/28/24 09:59 100 mls/hr .Q10H YOGESH Administration Morphine Sulfate 4 mg 01/27/24 22:30 01/28/24 05:08 Morphine Sulfate 4 Mg/Ml 1 Ml Carp\Vial IV 02/10/24 22:29 4 mg Q3H PRN Administration Pain (6,7,8,9,10) NPO Date Last Intake of Fluids: 01/27/24 Time Last Intake of Fluids: 23:42 Date Last Intake of Solids: 01/27/24 Past Medical History Medical History Urinary frequency Chronic, follows with urology PMR (polymyalgia rheumatica) muscle and joint stiffness and weakness, follows with [place] [facility], suspected PMR per pt, currently on prednisone taper with improvement, states will be completed by DOS Osteoarthritis BPH (benign prostatic hyperplasia) Past Family History Family History Grandmother (Paternal) Family history of diabetes mellitus Mother Breast cancer Heart disease Father Hypertension Other No family history of adverse response to anesthesia Past Surgical History Surgical History History of incision and drainage (12/16/23) Incision and drainage of back mass Dr. Pierre Status post reverse total arthroplasty of right shoulder History of toe surgery Left great toe open cheilectomy: 06/08/10: LMA#5 at [facility] [place] History of hemorrhoidectomy History of arthroscopy of left knee History of esophagogastroduodenoscopy (EGD) History of shoulder surgery several scopes of right shoulder History of total left knee replacement (TKR) > 10 yrs ago History of ear surgery right tympanoplasty History of colonoscopy colonoscopy: 03/21/20: MAC sedation at [facility] Social History Smoking Status: Never smoker Do You Dip or Chew Tobacco: No Hx Alcohol Use: Yes Alcohol type: beer alcohol intake frequency: holidays/special occasions only Hx Substance Use: No substance use type: does not use Physical Exam Vital Signs Last Vital Signs Temp 98.4 F 01/27/24 22:15 Pulse 57 L 09/06/24 22:15 Resp 16 01/27/24 22:15 BP 179/87 H 01/27/24 22:15 Pulse Ox 98 01/27/24 22:15 O2 Del Method Room Air 01/27/24 22:15 Testing Laboratory Results 01/28/24 06:05 PT 10.8 Seconds (9.0-12.0) 01/27/24 16:46 INR 1.0 (0.9-1.1) 01/27/24 16:46 Urine Color Yellow 01/27/24 22:51 Urine Appearance Clear (Clear) 01/27/24 22:51 Urine pH 5.5 (4.5-7.5) 01/27/24 22:51 Ur Specific [place] 1.044 (1.000-1.030) H 01/27/24 22:51 Urine Protein Negative (Negative) 01/27/24 22:51 Urine Glucose (UA) Negative (Negative) 01/27/24 22:51 Urine Ketones Negative (Negative) 01/27/24 22:51 Urine Nitrite Negative (Negative) 01/27/24 22:51 Ur Leukocyte Esterase Negative (Negative) 01/27/24 22:51 Blood Type O Positive 01/27/24 16:46 Antibody Screen NEGATIVE 01/27/24 16:46 Electrocardiogram Date: 01/27/24 Findings: + NSR @ (64 bpm) Chest X-Ray FINDINGS: 2 AP, portable, upright chest radiographs are compared to study dated 05/05/2022 and correlated with chest CT dated 05/19/2009. The cardiac silhouette appears enlarged. The pulmonary vasculature is noncongested. Chronic interstitial thickening is similar to previous. There is mild bibasilar scarring/atelectasis. No airspace consolidation or large pleural effusion is identified. No pneumothorax is seen. The skeletal structures are osteopenic. The bony thorax is grossly intact. A right shoulder arthroplasty is in place. IMPRESSION: No acute cardiopulmonary abnormality is identified. Echocardiogram Date: 01/14/21 Normal biventricular systolic function Mild concentric LVH Mild left atrial dilatation Mild mitral and tricuspid regurgitation
[2024-01-28] MEDS ORDERED: TRANEXAMIC ACID / 0.7% NACL 1000MG/100ML BAG IV ONE (07:13)
--- NOTE | 2024-01-28 07:19 | History & Physical Bridge Note ---
Date of Service January 28, 2024 History & Physical Bridge Note I have examined the patient, reviewed the History & Physical and in the interval since the performance of the History & Physical I have noted the following changes of clinical significance: no changes noted
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
[2024-01-28 07:21] LABS: Calcium 8.7 mg/dl (8.6-10.3); Potassium 4.2 mmol/L (3.5-5.1)
[2024-01-28 07:26] LABS: BUN Creatinine Ratio 23.5 (10-20); Creatinine Clr Calc Pharmacy 81.1 ml/min; Est GFR (African American) 100.9 ml/min; Est GFR (Non-African American) 87.1 ml/min
[2024-01-28] MEDS ORDERED: LIDOCAINE 2% 2 ML VIAL/AMP(20MG/ML) INFIL ONE (07:55)
[2024-01-28] MEDS ORDERED: PROPOFOL IV EMULSION 10 MG/ML 20 ML VIAL IV ONE (07:55)
[2024-01-28] MEDS ORDERED: ROCURONIUM BROMIDE 10 MG/ML 5 ML VIAL IV ONE (07:55)
[2024-01-28] MEDS ORDERED: MIDAZOLAM HCL 1 MG/ML 2ML VIAL ONE (07:55)
[2024-01-28] MEDS ORDERED: fentaNYL citrate PF 100 MCG/2 ML VIAL ONE ×2 (07:55→09:58)
[2024-01-28] MEDS: METOPROLOL SUCC 25MG EXT REL TAB PO SCH (08:09)
[2024-01-28] MEDS ORDERED: FLECAINIDE ACETATE 100 MG TABLET PO SCH ×2 (09:00→21:00)
[2024-01-28] MEDS: TRANEXAMIC ACID 1,000 MG in 0.9 % SODIUM CHLORIDE 100 ML IR SCH (09:25)
[2024-01-28] MEDS: ceFAZolin 2000MG 2,000 MG/15 ML SYR IV ONE (09:33)
[2024-01-28] MEDS: ROSUVASTATIN CALCIUM 5 MG TAB PO SCH (09:36)
[2024-01-28] MEDS: FAMOTIDINE 20 MG TAB PO SCH (09:36)
[2024-01-28] MEDS: FLECAINIDE ACETATE 100 MG TABLET PO SCH (09:36)
[2024-01-28] MEDS ORDERED: ceFAZolin 330 MG/ML 1 GM VIAL ONE (09:41)
[2024-01-28] MEDS ORDERED: ONDANSETRON INJ 2 MG/ML 2 ML VIAL ONE (09:41)
[2024-01-28] MEDS ORDERED: ePHEDrine sulfate 50 MG/5 ML SYR ONE (09:41)
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
[2024-01-28] MEDS ORDERED: SUGAMMADEX SODIUM 200 MG/2 ML VIAL IV ONE (10:49)
[2024-01-28] MEDS: BUPIVACAINE/EPINEPHRINE 0.5% MPF 1:200,000 30 ML VIAL ONE (10:54)
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
--- NOTE | 2024-01-28 12:04 | XRay Report ---
XR hip 1V LT w pelvis HISTORY: 73 years-old Male IN PACU - Post Surgical left hip arthroplasty COMPARISON: CT 01/27/2024 TECHNIQUE: AP view of the pelvis with crosstable lateral view of the left hip FINDINGS: Lateral fusion hardware with cerclage wires of the right proximal femur. A chronic fracture deformity is noted involving the right femur. Bilateral hip arthroplasties. Lateral left hip skin fabrizio with expected postoperative soft tissue swelling and deep tissue air. IMPRESSION: Left hip arthroplasty with expected postoperative changes. ACT 112: Negative or not required by law. The above report was generated using voice recognition software. It may contain grammatical, syntax o r spelling errors. Electronically signed by: Alvin Ward M.D. 01/28/2024 12:03 PM
[2024-01-28] MEDS: METOPROLOL TARTRATE 1 MG/ML VIAL IV STA (12:22)
--- NOTE | 2024-01-28 13:32 | Anesthesiology Progress Note ---
Date of Service January 28, 2024 Anesthesia Post Procedure Vital Signs Vital Signs: Temp Pulse Pulse Resp BP BP BP 01/28/24 12:45 111 H 20 159/112 H 01/28/24 12:35 117 H 20 163/114 H 01/28/24 12:34 115 H 152/115 H 01/28/24 12:25 113 H 16 181/121 H 01/28/24 12:15 110 H 20 164/114 H 01/28/24 12:05 113 H 14 171/121 H 01/28/24 11:55 101 H 15 187/132 H 01/28/24 11:45 109 H 12 161/120 H 01/28/24 11:35 124 H 12 186/119 H 01/28/24 11:25 120 H 20 179/132 H 01/28/24 11:15 117 H 20 135/104 H 01/28/24 11:07 97.3 F L 102 H 22 143/96 H 01/28/24 07:41 97.9 F 52 L 16 146/86 H 01/27/24 22:15 98.4 F 57 L 16 179/87 H 01/27/24 22:15 01/27/24 21:03 55 L 01/27/24 21:00 59 L 16 162/68 H 01/27/24 20:00 55 L 15 169/84 H 01/27/24 20:00 55 L 14 169/84 H 01/27/24 19:00 54 L 20 145/66 H 01/27/24 18:56 01/27/24 18:56 54 L 12 148/78 H 01/27/24 18:00 78 18 01/27/24 17:29 68 20 160/86 H 01/27/24 16:54 66 22 01/27/24 16:47 62 01/27/24 16:45 01/27/24 16:36 97.7 F 62 19 171/107 H Pulse Ox Pulse Ox O2 Del Method O2 Del Method O2 Flow Rate 01/28/24 12:45 96 Room Air 0 01/28/24 12:35 94 Room Air 0 01/28/24 12:34 01/28/24 12:25 93 Room Air 0 01/28/24 12:15 93 Room Air 0 01/28/24 12:05 96 Oxymask 4 01/28/24 11:55 93 Oxymask 4 01/28/24 11:45 93 Oxymask 4 01/28/24 11:35 97 Oxymask 4 01/28/24 11:25 97 Oxymask 4 01/28/24 11:15 97 Oxymask 8 01/28/24 11:07 92 Oxymask 8 01/28/24 07:41 97 Room Air 01/27/24 22:15 98 Room Air 01/27/24 22:15 98 Room Air 01/27/24 21:03 01/27/24 21:00 92 Room Air 01/27/24 20:00 98 Room Air 01/27/24 20:00 94 Room Air 01/27/24 19:00 97 Room Air 01/27/24 18:56 96 Room Air 01/27/24 18:56 96 Room Air 01/27/24 18:00 98 Room Air 01/27/24 17:29 97 Room Air 01/27/24 16:54 97 Room Air 01/27/24 16:47 01/27/24 16:45 Room Air 01/27/24 16:36 99 Room Air Pain Intensity Left Hip: Pain Intensity: 7 Transfer of Care Handoff Completed per policy Notes Mental Status: alert / awake / arousable and participated in evaluation Patient Amnestic to Procedure: Yes Nausea / Vomiting: adequately controlled Pain: adequately controlled Airway Patency, RR, SpO2: stable & adequate BP & HR: stable & adequate and see Notes below Hydration State: stable & adequate Anesthetic Complications: no major complications apparent and Pt Satisfied with anesthetic care Notes: The patient was noted to be tachycardic and hypertensive in PACU. The patient was given 2 separate doses of 2.5mg metoprolol IV for a total of 5mg IV. The patient's HR and BP improved. An EKG was ordered showing atrial flutter. I spoke with Dr. Sawyer, and the patient was to be given 100mg flecainide PO and 25mg metoprolol PO. The patient was to be transferred to PCU. I spoke with Dr. Garcia and updated her on the patient's status.
[2024-01-28] MEDS: fentaNYL citrate PF 100 MCG/2 ML VIAL IV PRN (13:43)
[2024-01-28] MEDS: LORazepam 1 MG TAB SL STA (13:49)
[2024-01-28] MEDS: FLECAINIDE ACETATE 100 MG TABLET PO ONE (14:11)
[2024-01-28] MEDS: fentaNYL citrate PF 100 MCG/2 ML VIAL ONE (14:12)
[2024-01-28] MEDS: METOPROLOL TARTRATE 25 MG TAB PO ONE (14:26)
[2024-01-28] MEDS ORDERED: NALOXONE HCL 0.4 MG/1 ML VIAL/CARP IV PRN (14:48)
[2024-01-28] MEDS ORDERED: bisacodyL 10 MG SUPP PR PRN (14:48)
[2024-01-28] MEDS ORDERED: ALUMINUM/MAGNESIUM SUSP 30 ML UDC PO PRN (14:48)
[2024-01-28] MEDS ORDERED: METOCLOPRAMIDE HCL INJ 5 MG/ML 2 ML VIAL IV PRN (14:48)
[2024-01-28] MEDS ORDERED: TAMSULOSIN HCL 0.4 MG CAP PO PRN (14:48)
[2024-01-28] MEDS ORDERED: MAGNESIUM HYDROXIDE SUSP 30 ML UDC PO PRN (14:48)
[2024-01-28] MEDS ORDERED: FLUOCINONIDE 0.05% CR 15 GM TUBE EXT PRN (15:02)
[2024-01-28] MEDS ORDERED: ZOLPIDEM TARTRATE 5 MG TAB PO PRN (15:03)
[2024-01-28] MEDS: ACETAMINOPHEN 500 MG TAB PO SCH (15:14)
[2024-01-28] MEDS: SODIUM CHLORIDE 0.9% 1,000 ML IV SCH (15:15)
[2024-01-28] MEDS: DOCUSATE SODIUM/SENNA 50/8.6MG TAB PO PRN (15:19)
[2024-01-28] MEDS: TRANEXAMIC ACID / 0.7% NACL 1,000 MG/100 ML BAG IV ONE (16:01)
[2024-01-28] MEDS: METOPROLOL TARTRATE 1 MG/ML VIAL IV ONE ×2 (16:02→18:36)
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
[2024-01-28] MEDS: ASCORBIC ACID 500 MG TAB PO SCH (18:23)
[2024-01-28] MEDS: ceFAZolin 2000MG 2,000 MG/15 ML SYR IV SCH (18:24)
[2024-01-28 18:30] LABS: BUN Creatinine Ratio 16.3 (10-20); Calcium 8.8 mg/dl (8.6-10.3); Creatinine Clr Calc Pharmacy 80.2 ml/min; Est GFR (African American) 100.4 ml/min; Est GFR (Non-African American) 86.6 ml/min; Magnesium 1.7 mg/dl (1.7-2.4); Potassium 3.9 mmol/L (3.5-5.1)
[2024-01-28] MEDS: TRANEXAMIC ACID / 0.7% NACL 1,000 MG/100 ML BAG IV SCH (18:30)
[2024-01-28] MEDS: ONDANSETRON INJ 2 MG/ML 2 ML VIAL IV PRN (18:48)
[2024-01-28] MEDS: TAMSULOSIN HCL 0.4 MG CAP PO SCH (19:29)
[2024-01-28] MEDS: SENNA 8.6 MG TAB PO SCH (20:15)
[2024-01-28] MEDS: MAGNESIUM SULFATE / D5W 1 GM/100 ML BAG IV SCH (20:20)
[2024-01-28] MEDS: DOCUSATE SODIUM 100 MG CAP PO SCH (20:20)
[2024-01-28] MEDS: HYDROmorphone INJ 0.5 MG/0.5 ML SYR IV PRN (23:20)
[2024-01-29 06:00] LABS: Basophils # (auto) 0.02 K/uL (0.00-0.20); Basophils % (auto) 0.2 %; Eosinophils # (auto) 0.09 K/uL (0.00-0.50); Hematocrit (blood only) 35.7 % (42.0-52.0); Hemoglobin 11.9 g/dl (14.0-18.0); Immature Granulocytes # (auto) 0.04 K/uL (0.01-0.20); Immature Granulocytes % (auto) 0.4 %; Lymphocytes # (auto) 0.88 K/uL (1.20-3.40); Lymphocytes % (auto) 9.6 %; Mean Corpuscular Hemoglobin 26.5 pg (25.0-34.0); Mean Corpuscular Hgb Conc 33.3 g/dL (32.0-36.0); Mean Corpuscular Volume 79.5 fL (80.0-100.0); Mean Platelet Volume 10.1 fL (9.4-12.4); Monocytes # (auto) 1.11 K/uL (0.11-0.59); Monocytes % (auto) 12.1 %; Neutrophils # (auto) 7.01 K/uL (1.40-6.50); Neutrophils % (auto) 76.7 %; Platelet Count 225 K/uL (130-400); RDW Coefficient of Variation 15.7 % (11.5-14.5); RDW Standard Deviation 45.2 fL (36.4-46.3); Red Blood Count 4.49 M/uL (4.70-6.10); White Blood Count 9.15 K/ul (4.8-10.8)
[2024-01-29 06:14] LABS: BUN Creatinine Ratio 16.3 (10-20); Calcium 8.4 mg/dl (8.6-10.3); Creatinine Clr Calc Pharmacy 70.4 ml/min; Est GFR (African American) 88.9 ml/min; Est GFR (Non-African American) 76.7 ml/min; Magnesium 2.1 mg/dl (1.7-2.4)
[2024-01-29 06:28] LABS: Thyroid Stimulating Hormone 1.02 uIu/ml (0.300-4.500)
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
[2024-01-29] MEDS: dexAMETHasone 10 MG in SYRINGE 0 ML IV SCH (08:08)
[2024-01-29] MEDS: POLYETHYLENE (MIRALAX) 17 GM PACK PO SCH (08:12)
[2024-01-29] MEDS: CHOLECALCIFEROL 25 MCG (1000 UNITS) TAB PO SCH (08:13)
[2024-01-29] MEDS: MULTIVITAMIN TAB PO SCH (08:16)
--- NOTE | 2024-01-29 08:51 | Cardiology Progress Note ---
Date of Service January 29, 2024 Assessment & Plan (1) Atrial flutter with rapid ventricular response: (2) Paroxysmal A-fib: (3) Wide-complex tachycardia: (4) Dyspnea on exertion: (5) Hypertension: Plan ASSESSMENT/PLAN: 1. Atrial flutter: Paroxysmal. Sinus rhythm since converting yesterday evening. Discussed potentially pursuing or at least considering atrial flutter ablation given recurrence earlier this year while hospitalized in [place]. Appears to have had intermittent one-to-one conduction on telemetry with wide- complex tachycardia, likely aberrancy. For now, continue flecainide 50 mg twice daily in the postoperative state rather than expose him to another antiarrhythmic therapy and discuss with electrophysiology after the weekend for long-term treatment plan. Continue anticoagulation for stroke risk reduction when safe from a surgical standpoint. If he should have recurrent atrial flutter while hospitalized, would recommend diltiazem IV drip to help further block the AV node and reduce the risk of one-to-one conduction. Echo pending. TSH normal. 2. Paroxysmal atrial fibrillation: Currently in sinus rhythm after being in atrial flutter. Plan as above. 3. Wide-complex tachycardia: Possibly aberrancy while in atrial flutter with intermittent 1-1 AV block. Cannot exclude nonsustained ventricular tachycardia. Plan as above. 4. Hypertension: Initially hypertensive yesterday but blood pressure now well- controlled. 5. Dyspnea on exertion: Occasional dyspnea on exertion with inclines over the past year but not progressively worsening. Echo as above. Could consider noninvasive ischemic evaluation once recovered from surgery if continued or worsening symptoms. 6. Disposition: Can be discharged home from a cardiology perspective. He is likely to remain hospitalized according to notes today. Follow-up closely with primary training and development director, Dr. Buckley. Admission and Anticipated Discharge Date Admission Date: January 27, [address] Reed was seen this morning with his at the bedside. He denies chest pain, shortness of breath, syncope, near syncope, palpitations. His surgical pain is much better controlled today. Physical Exam Physical Exam: Gen.: No acute distress. Alert and oriented. HEENT: Anicteric sclera. Neck: No JVD. Cardiac: Regular. Mildly bradycardic in the 50s. Normal S1-S2. No murmurs, rubs, or gallops. Pulmonary: Clear to auscultation bilaterally without wheezes, rales, or rhonchi. Abdomen: Soft, nontender, nondistended, with normoactive bowel sounds. No bruits noted. Extremities: 2+ radial pulses bilaterally. 2+ posterior tibialis pulses bilaterally. No significant edema. No cyanosis. Psychiatric: Affect appears appropriate. Results & Data Vital Signs (Past 12 Hours) Vital Signs Temp Pulse Pulse Resp BP Pulse Ox Pulse Ox 01/29/24 07:03 36.4 C L 61 19 119/64 93 01/29/24 06:52 93 01/29/24 06:46 63 01/29/24 03:25 36.4 C L 58 L 18 127/68 95 01/29/24 02:58 93 01/29/24 00:00 60 01/28/24 23:07 63 18 103/69 98 01/28/24 22:49 92 O2 Del Method O2 Del Method 01/29/24 07:03 Room Air 01/29/24 06:52 Room Air 01/29/24 06:46 01/29/24 03:25 Room Air 01/29/24 02:58 Room Air 01/29/24 00:00 01/28/24 23:07 Room Air 01/28/24 22:49 Room Air Intake & Output 01/27/24 01/28/24 01/29/24 01/30/24 06:59 06:59 06:59 06:59 Intake Total 337.5 / 337.5 4113.333 / 4113.333 Output Total 700 / 700 2049 / 2049 Balance -362.5 / -362.5 2063.333 / 2063.333 Weight 177 lb 7.554 oz 179 lb 0.246 oz Also Laboratory Results Laboratory Results - last 24 hr 01/28/24 01/29/24 18:04 05:31 WBC 9.15 RBC 4.49 L Hgb 11.9 L Hct 35.7 L MCV 79.5 L MCH 26.5 MCHC 33.3 RDW Std Deviation 45.2 RDW Coeff of Noé 15.7 H Plt Count 225 MPV 10.1 Immature Gran % (Auto) 0.4 Neut % (Auto) 76.7 Lymph % (Auto) 9.6 [place] % (Auto) 12.1 Eos % (Auto) 1.0 Baso % (Auto) 0.2 Neut # (Auto) 7.01 H Lymph # (Auto) 0.88 L [place] # (Auto) 1.11 H Eos # (Auto) 0.09 Baso # (Auto) 0.02 Immature Gran # (Auto) 0.04 Sodium 136 134 L Potassium 3.9 4.0 Chloride 104 102 Carbon Dioxide 25 25 Anion Gap 7 7 BUN 14 16 Creatinine 0.86 0.98 Est Cr Clr Drug Dosing 80.2 70.4 Est GFR ( Amer) 100.4 88.9 Est GFR (Non-Af Amer) 86.6 76.7 BUN/Creatinine Ratio 16.3 16.3 Glucose 123 H 119 H Calcium 8.8 8.4 L Magnesium 1.7 2.1 TSH 1.020 Diagnostic Findings ECG personally reviewed 01/28/2024 at 1803: Sinus rhythm 76 bpm. Ortho note reviewed from 01/29/2024. Labs reviewed from 01/29/2024 notable for normal potassium, stable renal function, normal TSH, mild anemia. Telemetry personally reviewed: Sinus rhythm in the 50s to 60s. Medications Administered Current Inpatient Medications Acetaminophen (Acetaminophen 500 Mg Tab) 1,000 mg PO Q8 YOGESH Stop: 02/27/24 14:47 Last Admin: 01/29/24 05:20 Dose: 1,000 mg Al Hydrox/Mg Hydrox/Simethicone (Aluminum/Magnesium Susp 30 Ml Udc) 15 ml PO Q4H PRN PRN Reason: Heartburn Stop: 02/27/24 14:47 Apixaban (Apixaban 2.5 Mg Tab) 2.5 mg PO BID YOGESH Stop: 02/28/24 11:02 Ascorbic Acid (Ascorbic Acid 500 Mg Tab) 500 mg PO BIDM [facility] Stop: 02/27/24 16:59 Last Admin: 01/29/24 08:13 Dose: 500 mg Bisacodyl (Bisacodyl 10 Mg Supp) 10 mg MT DAILY PRN PRN Reason: Constipation Stop: 02/26/24 22:29 Bisacodyl (Bisacodyl 10 Mg Supp) 10 mg MT DAILY PRN PRN Reason: Constipation Stop: 02/27/24 14:47 Docusate Sodium (Docusate Sodium 100 Mg Cap) 100 mg PO BID YOGESH Stop: 02/27/24 20:59 Last Admin: 01/29/24 08:13 Dose: 100 mg Famotidine (Famotidine 20 Mg Tab) 20 mg PO DAILY [facility] Stop: 02/27/24 08:59 Last Admin: 01/29/24 08:14 Dose: 20 mg Flecainide Acetate (Flecainide Acetate 100 Mg Tablet) 50 mg PO BID [facility] Stop: 02/27/24 08:59 Last Admin: 01/29/24 08:15 Dose: 50 mg Fluocinonide (Fluocinonide 0.05% Cr 15 Gm Tube) 1 appln EXT BID PRN PRN Reason: Itching Stop: 02/27/24 15:01 Hydromorphone HCl (Hydromorphone Inj 0.5 Mg/0.5 Ml Syr) 0.5 mg IV Q4H PRN PRN Reason: Pain or Pre PT Stop: 02/11/24 14:47 Last Admin: 01/28/24 23:20 Dose: 0.5 mg Magnesium Hydroxide (Magnesium Hydroxide Susp 30 Ml Udc) 30 ml PO DAILY PRN PRN Reason: Constipation Stop: 02/26/24 22:29 Magnesium Hydroxide (Magnesium Hydroxide Susp 30 Ml Udc) 30 ml PO Q6H PRN PRN Reason: Constipation Stop: 02/27/24 14:47 Metoclopramide HCl (Metoclopramide Hcl Inj 5 Mg/Ml 2 Ml Vial) 10 mg IV Q6H PRN PRN Reason: Nausea And Vomiting Stop: 02/27/24 14:47 Metoprolol Succinate (Metoprolol Succ 25mg Ext Rel Tab) 25 mg PO BID [facility] Stop: 02/27/24 08:59 Last Admin: 01/29/24 08:16 Dose: 25 mg Morphine Sulfate (Morphine Sulfate 2 Mg/Ml Carp) 2 mg IV Q3H PRN PRN Reason: Pain (1,2,3,4,5) & Pre PT Stop: 02/10/24 22:29 Morphine Sulfate (Morphine Sulfate 4 Mg/Ml 1 Ml Carp\Vial) 4 mg IV Q3H PRN PRN Reason: Pain (6,7,8,9,10) Stop: 02/10/24 22:29 Last Admin: 01/28/24 18:20 Dose: 4 mg Multivitamins (Multivitamin Tab) 1 tab PO QAM YOGESH Stop: 02/28/24 08:59 Last Admin: 01/29/24 08:16 Dose: 1 tab Naloxone HCl (Naloxone Hcl 0.4 Mg/1 Ml Vial/Carp) 0.1 mg IV UD PRN PRN Reason: Opiate Overdose Stop: 02/26/24 22:29 Naloxone HCl (Naloxone Hcl 0.4 Mg/1 Ml Vial/Carp) 0.1 mg IV Q5M PRN PRN Reason: Oversedation/Resp Depression Stop: 02/27/24 14:47 Ondansetron HCl (Ondansetron Inj 2 Mg/Ml 2 Ml Vial) 4 mg IV Q6H PRN PRN Reason: Nausea And Vomiting Stop: 02/26/24 22:29 Last Admin: 01/28/24 18:48 Dose: 4 mg Ondansetron HCl (Ondansetron Inj 2 Mg/Ml 2 Ml Vial) 4 mg IV Q6H PRN PRN Reason: Nausea And Vomiting Stop: 02/27/24 14:47 Ondansetron HCl (Ondansetron Inj 2 Mg/Ml 2 Ml Vial) 4 mg IV Q6H PRN PRN Reason: Nausea Stop: 02/27/24 14:47 Polyethylene Glycol (Polyethylene (Miralax) 17 Gm Pack) 17 gm PO DAILY YOGESH Stop: 02/28/24 08:59 Last Admin: 01/29/24 08:12 Dose: 17 gm Rosuvastatin Calcium (Rosuvastatin Calcium 5 Mg Tab) 5 mg PO DAILY YOGESH Stop: 02/27/24 08:59 Last Admin: 01/29/24 08:16 Dose: 5 mg Senna/Docusate Sodium (Docusate Sodium/Senna 50/8.6mg Tab) 2 tab PO HS PRN PRN Reason: constipation Stop: 02/26/24 22:29 Last Admin: 01/28/24 20:18 Dose: 2 tab Sennosides (Senna 8.6 Mg Tab) 17.2 mg PO HS YOGESH Stop: 02/27/24 20:59 Last Admin: 01/28/24 20:15 Dose: 17.2 mg Tamsulosin HCl (Tamsulosin Hcl 0.4 Mg Cap) 0.4 mg PO QDD YOGESH Stop: 02/27/24 16:29 Last Admin: 01/28/24 19:29 Dose: 0.4 mg Tamsulosin HCl (Tamsulosin Hcl 0.4 Mg Cap) 0.4 mg PO QAM PRN PRN Reason: UNABLE to void Stop: 02/27/24 14:47 Tramadol HCl (Tramadol Hcl 50 Mg Tablet) 50 - 100 mg PO Q6H PRN PRN Reason: Pain & Pre PT Stop: 02/27/24 14:47 Vitamin D (Cholecalciferol 25 Mcg (1000 Units) Tab) 50 mcg PO DAILY YOGESH Stop: 02/28/24 08:59 Last Admin: 01/29/24 08:13 Dose: 50 mcg Zolpidem Tartrate (Zolpidem Tartrate 5 Mg Tab) 10 mg PO HS PRN PRN Reason: Insomnia Stop: 02/27/24 15:02 PG Care Time/CCT Total # of Minutes Spent Total Time Spent with Patient: Total time spent is greater than 50% in coordination of care (as documented) at patient's floor/unit and/or counseling patient: Coding Level of Care Code 68093 SUB INP/OBS CARE 3/50MIN Diagnoses Atrial flutter with rapid ventricular response I48.92 Paroxysmal A-fib I48.0 Wide-complex tachycardia R00.0 Dyspnea on exertion R06.09 Primary hypertension I10 Hypertension type: primary hypertension (5) Hypertension Hypertension type: primary hypertension Qualified Code(s): I10 - Essential (primary) hypertension
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
[2024-01-29] MEDS: APIXABAN 2.5 MG TAB PO SCH (12:16)
--- NOTE | 2024-01-29 13:59 | XCELERA ---
[id number]
--- NOTE | 2024-01-29 22:14 | Electrocardiogram Report ---
Test Reason : Blood Pressure : */* mmHG Vent. Rate : 64 BPM Atrial Rate : 64 BPM P-R Int : 156 ms QRS Dur : 86 ms QT Int : 400 ms P-R-T Axes : 55 4 35 degrees QTcB Int : 412 ms Normal sinus rhythm Normal ECG When compared with ECG of 18-Oct-2023 21:23, Premature atrial complexes are no longer Present T wave amplitude has increased in Anterolateral leads Confirmed by Estuardo Sawyer ([id number]) on 01/29/2024 10:13:59 PM Referred By: REFERRED SELF Confirmed By: Estuardo Sawyer
--- NOTE | 2024-01-29 22:15 | Electrocardiogram Report ---
Test Reason : Blood Pressure : */* mmHG Vent. Rate : 102 BPM Atrial Rate : 242 BPM P-R Int : * ms QRS Dur : 92 ms QT Int : 334 ms P-R-T Axes : 248 -32 53 degrees QTcB Int : 435 ms Atrial flutter with variable A-V block Left axis deviation Nonspecific ST abnormality Abnormal ECG When compared with ECG of 27-Jan-2024 16:38, Atrial flutter has replaced Sinus rhythm Vent. rate has increased by 38 bpm QRS axis Shifted left Confirmed by Estuardo Sawyer ([id number]) on 01/29/2024 10:14:31 PM Referred By: REFERRED SELF Confirmed By: Estuardo Sawyer
--- NOTE | 2024-01-29 22:20 | Electrocardiogram Report ---
Test Reason : Blood Pressure : */* mmHG Vent. Rate : 114 BPM Atrial Rate : 120 BPM P-R Int : * ms QRS Dur : 88 ms QT Int : 324 ms P-R-T Axes : * -32 90 degrees QTcB Int : 446 ms Atrial flutter with rapid ventricular response Left axis deviation Nonspecific ST abnormality Abnormal ECG When compared with ECG of 28-Jan-2024 12:41, No significant change Confirmed by Estuardo Sawyer ([id number]) on 01/29/2024 10:19:40 PM Referred By: REFERRED SELF Confirmed By: Estuardo Sawyer
--- NOTE | 2024-01-29 22:21 | Electrocardiogram Report ---
Test Reason : Blood Pressure : */* mmHG Vent. Rate : 112 BPM Atrial Rate : 133 BPM P-R Int : * ms QRS Dur : 102 ms QT Int : 344 ms P-R-T Axes : * -40 83 degrees QTcB Int : 469 ms Sinus rhythm with Atrial fibrillation with rapid ventricular response with premature ventricular or aberrantly conducted complexes Left axis deviation Nonspecific T wave abnormality Abnormal ECG When compared with ECG of 28-Jan-2024 14:55, Atrial flutter is no longer Present Confirmed by Estuardo Sawyer ([id number]) on 01/29/2024 10:20:44 PM Referred By: REFERRED SELF Confirmed By: Estuardo Sawyer
--- NOTE | 2024-01-29 22:21 | Electrocardiogram Report ---
Test Reason : Blood Pressure : */* mmHG Vent. Rate : 76 BPM Atrial Rate : 76 BPM P-R Int : 168 ms QRS Dur : 98 ms QT Int : 366 ms P-R-T Axes : 61 -10 48 degrees QTcB Int : 411 ms Normal sinus rhythm Nonspecific ST abnormality Abnormal ECG When compared with ECG of 28-Jan-2024 17:25, Atrial fibrillation is no longer Present QRS axis Shifted right ST elevation now present in Lateral leads Confirmed by Estuardo Sawyer ([id number]) on 01/29/2024 10:21:31 PM Referred By: REFERRED SELF Confirmed By: Estuardo Sawyer
[2024-01-30 02:49] VITALS: TEMP 97.9
[2024-01-30 07:10] VITALS: O2SAT 97
[2024-01-30 07:13] VITALS: PULSE 54; RESP 20
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
[2024-01-30] MEDS: traMADol HCL 50 MG TABLET PO PRN (12:31)
[2024-01-30 14:23] VITALS: BP 102/61
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
== END 2024-01-30 15:10 | DRG 522 ==
LOC: ED 16:31 → SUATTDRO 21:18 → 3E 21:18 → 2E 01-28 14:44